=== PATIENT | male | born 1940 | race Caucasian/White ===

== ENCOUNTER 2023-08-31 21:56 | Emergency (ER) | payer MEDICARE, OTHER, SELFPAY ==
--- NOTE | ~2023-08-31 | XR_ITS ---
Portable chest x-ray Comparison: None Clinical History: Sepsis Findings: There is mild patchy bibasilar haziness and probable mild peripheral and basilar interstit ial prominence. Cardiomediastinal silhouette is enlarged. Bones and soft tissues are unremarkable. Impression: Mild bibasilar haziness could reflect pulmonary edema, atelectasis, pneumonia, or chronic interstitia l change. Correlate clinically. Suspected underlying peripheral and basilar predominant chronic interstitial disease. Cardiomegaly. Reviewed, dictated and finalized at location M. Impression: Mild bibasilar haziness could reflect pulmonary edema, atelectasis, pneumonia, or chronic interstitial change. Correlate clinically. Suspected underlying peripheral and basilar predominant chronic interstitial di sease. Cardiomegaly.
--- NOTE | ~2023-08-31 | XR_ITS ---
Left Knee Technique: AP and lateral views were obtained. Clinical History: Septic knee, knee surgery 3 months ago Findings: There is a transverse fracture of the mid patellar body, with distraction of the fracture f ragments by approximately 2.8 cm. There is extensive orthopedic fixation hardware involving the super ior patellar fragment, however the inferior patellar fragment is not transfixed by hardware, which co uld reflect failure of the fixation. Underlying neoplastic hardware is in satisfactory position other sharpe. There is mild soft tissue edema at the anterior knee. No joint effusion is seen. Impression: Transverse fracture the mid patellar body with 2.8 cm of distraction. Probable failure of prior mcnair lar ORIF, with orthopedic fixation hardware involving the superior patellar fragment, but not the inf erior. Osteomyelitis of the patella cannot be completely excluded, though changes could also be related to p osttraumatic change and underlying fracture. Reviewed, dictated and finalized at location . Impression: Transverse fracture the mid patellar body with 2.8 cm of distraction. Probable failure of prior patellar ORIF, with orthopedic fixation hardware involving the superior patellar fragment, but not the inferior. Osteomyelitis of the patella cannot be completely excluded, though changes coul d also be related to posttraumatic change and underlying fracture.
[2023-08-31 21:52] VITALS: BP 171/90; PULSE 78; RESP 18; TEMP 37.8; O2SAT 95
--- NOTE | 2023-08-31 22:04 | ED.EXTPRO ---
HPI - Extremity Problem General Chief complaint: Extremity Problem,Nontraumatic <Bernardino Gaines PA-C - Last Filed: 09/01/23 02:00> Stated complaint: knee pian <Bernardino Gaines PA-C - Last Filed: 09/01/23 02:00> Time Seen by Provider: 08/31/23 21:56 <Bernardino Gaines PA-C - Last Filed: 09/01/23 02:00> Source: patient <ARBEN Coffey Last Filed: 09/01/23 02:00> Mode of arrival: EMS <ARBEN Coffey Last Filed: 09/01/23 02:00> Limitations: no limitations <ARBEN Coffey Last Filed: 09/01/23 02:00> History of Present Illness HPI Narrative: This is an 81-year-old male who presents to the ED with chief complaint of left knee pain and swelling for the past 24 hours. He is currently residing in a nursing/ rehab facility after having left knee surgery 3 months ago. Reports that he broke his patella. He has history of bilateral knee replacements over a decade ago. These procedures were done at [facility] with most recent June 19, 2023, after having a fractured patella. he states that the knee pain and swelling has been rapidly worsening over the past 24 hours. Before yesterday states he was feeling fine. States it is very difficult to move the knee at all and certainly cannot bear weight. Unsure fevers. Denies nausea, vomiting, urinary symptoms, chest pain, cough, shortness of breath, no pain. <Bernardino Gaines PA-C - Last Filed: 09/01/23 02:00> Related Data Allergies/Adverse reactions: Allergies Allergy/AdvReac Type Severity Reaction Status Date / Time No Known Allergies Allergy Mild Verified 11/18/09 18:01 <ARBEN Coffey Last Filed: 09/01/23 02:00> Review of Systems Review of Systems: All systems as dictated in HPI <ARBEN Coffey Last Filed: 09/01/23 02:00> Exam Narrative: GENERAL: Well-appearing, well-nourished, and in no acute distress. HEAD: Normocephalic, atraumatic. EYES: PERRLA and EOMI. ENT: Nares clear, no rhinorrhea or epistaxis. Mucous membranes moist. Oropharynx without tonsillar hypertrophy exudate or other lesions. NECK: Supple. No adenopathy or masses. CHEST: No respiratory distress. Clear to auscultation. No wheezes rales or rhonchi HEART: Regular rate and rhythm. No murmur heard. Normal peripheral pulses. ABDOMEN: Soft, nontender, nondistended, normal active bowel sounds. MSK: Left knee: erythematous and quite warm to palpation. Significant pain with micro movements of the knee. tender throughout. No drainage. Healed midline vertical incision. Right knee: Benign SKIN: Warm, dry, no rash. NEURO: Alert and oriented x4. No focal deficits. PSYCH: Normal mood and affect. <Bernardino Gaines PA-C - Last Filed: 09/01/23 02:00> Course FLEXO OPERATOR/PA Physician Supervision This visit was performed by both a physician and an APC. I performed all aspects of the MDM as documented. <Vivian Dennis MD - Last Filed: 09/01/23 07:39> Vital Signs Vital signs: Vital Signs Temperature 100.0 F H 08/31/23 21:52 Pulse Rate 78 08/31/23 21:52 Respiratory Rate 18 08/31/23 21:52 Blood Pressure 171/90 H 08/31/23 21:52 Pulse Oximetry 95 08/31/23 21:52 Oxygen Delivery Room Air 08/31/23 21:52 Temperature 100.0 F H 08/31/23 21:52 Pulse Rate 76 09/01/23 01:37 Respiratory Rate 16 09/01/23 01:37 Blood Pressure 160/86 H 09/01/23 01:37 Pulse Oximetry 96 09/01/23 01:39 Oxygen Delivery Nasal Cannula 09/01/23 01:39 Oxygen Flow Rate 2 09/01/23 01:39 <Bernardino Gaines PA-C - Last Filed: 09/01/23 02:00> Vital Signs Temperature 100.0 F H 08/31/23 21:52 Pulse Rate 78 08/31/23 21:52 Respiratory Rate 18 08/31/23 21:52 Blood Pressure 171/90 H 08/31/23 21:52 Pulse Oximetry 95 08/31/23 21:52 Oxygen Delivery Room Air 08/31/23 21:52 Temperature 100.0 F H 08/31/23 21:52 Pulse Rate 76 09/01/23 01:37 Respiratory Rate 16 09/01/23 01:37 Blood Pressure 160/86 H 07
[2023-08-31] MEDS: SODIUM CHLORIDE 0.9% IV 1,000 ML 999 ML IV CONT (22:13)
[2023-08-31] MEDS: ONDANSETRON INJ 4 MG/2 ML VIAL IV PUSH (22:13)
[2023-08-31] MEDS: HYDROmorphone HCL INJ (*CRX) 1 MG/ML SYR 0.5 MG IV PUSH (22:13)
[2023-08-31 22:33] LABS: Basophils Percent Auto 0.4 % (0.2-1.2); Eosinophils Absolute Auto 0.1 K/mm3 (0-0.3); Eosinophils Percent Auto 0.8 % (0-4.4); Hemoglobin 13.2 g/dL (14.0-18.0); Immature Granulocyte Absolute 0.03 K/mm3 (0.00-0.031); Immature Granulocyte Percent A 0.3 % (0-0.5); Lymphocytes Absolute Auto 2.41 K/mm3 (0.9-3.2); Lymphocytes Percent Auto 26.7 % (18.3-44.2); Mean Corpuscular Hemoglobin 29.6 pg (26-34); Mean Corpuscular Volume 89.7 fl (80-100); Mean Platelet Volume 9.8 fl (7.4-10.4); Monocytes Absolute Auto 1.2 K/mm3 (0.1-0.6); Monocytes Percent Auto 12.8 % (2.6-8.5); Neutrophils Absolute Auto 5.3 K/mm3 (1.3-6.7); Platelet Count Result 176 k/mm3 (150-375); Red Blood Count 4.46 M/mm3 (4.6-6.20); Red Cell Distribution Width 14.1 % (11.5-14.5)
[2023-08-31 22:34] VITALS: PULSE 79
[2023-08-31 22:43] LABS: INR 1.2; Lactic Acid Reflex 1.2 mmol/L (0.7-2.0); Prothrombin Time 16.2 Seconds (11.1-14.7)
[2023-08-31 22:56] LABS: Alanine Aminotransferase 20 U/L (6-50); Albumin Level 3.9 g/dL (3.5-5.1); Alkaline Phosphatase 88 U/L (38-126); Anion Gap 8 mmol/L (4-12); Aspartate Amino Transferase 33 U/L (17-59); Bilirubin,Total 0.7 mg/dL (0.2-1.3); Blood Urea Nitrogen 14 mg/dL (9-20); Calcium 8.9 mg/dL (8.4-10.2); Carbon Dioxide 25 mmol/L (22-30); Chloride 105 mmol/L (98-107); Estimated CRCL calculation 71 ml/min; Estimated Glomerular Filt Rate > 60; Glucose 129 mg/dL (65-110); Sodium 138 mmol/L (137-145)
--- NOTE | 2023-09-01 00:31 | PC.NURSE ---
Patient adamant about not straight catheterization. Continues to attempt to urinate in urinal.
[2023-09-01 00:32] VITALS: BP 156/80; PULSE 70; RESP 15; O2SAT 95
[2023-09-01 01:37] VITALS: BP 160/86; PULSE 76; RESP 16; O2SAT 95
[2023-09-01 01:39] VITALS: O2SAT 96
--- NOTE | 2023-09-01 01:39 | PC.NURSE ---
Patient desaturating when sleeping to mid 80's; once awake oxygen saturation increases promptly. EDP made aware. Placed on 2 LPM of supplemental oxygen.
[2023-09-01 01:57] LABS: Erythrocyte Sedimentation Rate 18 mm/hr (0-20)
[2023-09-01] MEDS: HYDROmorphone HCL INJ (*CRX) 1 MG/ML SYR 0.5 MG IV PUSH (03:41)
== END 2023-09-01 03:50 | disposition short-term general hospital (02) ==
PROVIDERS: Emergency Provider Physician Assistant; PCP Family Medicine
DX: M25.462 Effusion, left knee (principal); S82.032A Displaced transverse fracture of left patella, initial encounter for closed fracture; R91.8 Other nonspecific abnormal finding of lung field; I51.7 Cardiomegaly; Z96.653 Presence of artificial knee joint, bilateral; R93.6 Abnormal findings on diagnostic imaging of limbs; X58.XXXA Exposure to other specified factors, initial encounter
CPT/HCPCS: 36415; 71045; 73560; 80053; 83605; 85025; 85610; 85652; 85730; 86140; 87040; 96361; 96374; 96375; 96376; 99285; J1170; J2405; J7030

== ENCOUNTER 2024-04-23 16:02 | Inpatient (IN) | payer MEDICARE, OTHER, SELFPAY ==
[2024-04-23] VITALS (14 sets, daily range): BP systolic 96–137; BP diastolic 61–94; PULSE 55–67; RESP 14–21; TEMP 36.8; O2SAT 96–100
[2024-04-23 17:43] LABS: Eosinophils Absolute Auto 0.1 K/mm3 (0-0.3); Eosinophils Percent Auto 2.3 % (0-4.4); Hematocrit 23.8 % (42.0-52.0); Hemoglobin 7.1 g/dL (14.0-18.0); Immature Granulocyte Absolute 0.01 K/mm3 (0.00-0.031); Immature Granulocyte Percent A 0.3 % (0-0.5); Lymphocytes Absolute Auto 1.67 K/mm3 (0.9-3.2); Lymphocytes Percent Auto 42.6 % (18.3-44.2); Mean Corpuscular HGB Conc 29.8 g/dl (32-36); Mean Corpuscular Hemoglobin 26.8 pg (26-34); Mean Corpuscular Volume 89.8 fl (80-100); Mean Platelet Volume 9.6 fl (7.4-10.4); Monocytes Absolute Auto 0.5 K/mm3 (0.1-0.6); Neutrophils Absolute Auto 1.6 K/mm3 (1.3-6.7); Neutrophils Percent Auto 41.8 % (45.5-73.1); Platelet Count Result 286 k/mm3 (150-375); Red Blood Count 2.65 M/mm3 (4.6-6.20); Red Cell Distribution Width 16.3 % (11.5-14.5); White Blood Count 3.9 K/mm3 (4.5-10.0)
[2024-04-23 18:01] LABS: Alanine Aminotransferase 14 U/L (6-50); Albumin Level 3.6 g/dL (3.5-5.1); Alkaline Phosphatase 67 U/L (38-126); Anion Gap 9 mmol/L (4-12); Aspartate Amino Transferase 18 U/L (17-59); Bilirubin,Total 0.3 mg/dL (0.2-1.3); Blood Urea Nitrogen 14 mg/dL (9-20); Calcium 8.7 mg/dL (8.4-10.2); Carbon Dioxide 25 mmol/L (22-30); Chloride 106 mmol/L (98-107); Estimated CRCL calculation 51 ml/min; Estimated Glomerular Filt Rate > 60; Glucose 79 mg/dL (65-110); Potassium 4.1 mmol/L (3.4-5.0); Sodium 140 mmol/L (137-145)
[2024-04-23 18:08] LABS: INR 1.4; Prothrombin Time 17.8 Seconds (11.1-14.7)
[2024-04-23 18:11] LABS: Troponin I < 0.012 ng/mL (0.000-0.034)
[2024-04-23 18:17] LABS: Platelet Estimate Adequate (Adequate)
[2024-04-23 18:18] LABS: Hypochromasia 1+; Ovalocytes 1+; Schistocytes None Seen
[2024-04-23 18:46] LABS: Strep Group A RT-PCR NOT DETECTED (Negative)
--- NOTE | 2024-04-23 19:09 | ED.GENADULT ---
HPI - General Adult General Chief complaint: Recheck/Abnormal Lab/Rx Stated complaint: low H&H Time Seen by Provider: 04/23/24 16:55 History of Present Illness HPI narrative: This is an 83-year-old male sent in for abnormal labs. Patient's hemoglobin was 6.7 at his rehab center. Patient is on Eliquis for AFib. Patient denies any melena or hematochezia. Patient has no complaints at this time. Patient does not know why he is in the hospital. Patient is in rehab for a patella fracture that has had a complicated course. Review of his [facility] paperwork showed hemoglobin of 12.5 on 03/22/24. Related Data Allergies Allergy/AdvReac Type Severity Reaction Status Date / Time No Known Allergies Allergy Mild Verified 04/23/24 16:14 [facility] Social History Social History Smoking status: Smoker, status unknown Exam Narrative: APPEARANCE: No apparent distress. Head: atraumatic. EYES: EOMI, NOSE: Atraumatic NECK: Trachea midline RESPIRATORY: No increased rate of breathing CARDIOVASCULAR: RRR, ABDOMINAL: Non-distended soft nontender no guarding rebound Digital rectal exam revealed no esha blood in the rectal vault. Hemoccult positive. MUSCULOSKELETAl: Left knee has surgical scars/deformities without warmth erythema or signs infection NEURO: Alert. Moving 4/4 extremities SKIN:: Warm, dry. Normal color PSYCHIATRIC: Normal affect Course Vital Signs Vital signs: Vital Signs Temperature 98.3 F 04/23/24 16:05 Pulse Rate 67 04/23/24 16:05 Respiratory Rate 20 04/23/24 16:05 Blood Pressure 127/67 04/23/24 16:05 Pulse Oximetry 97 04/23/24 16:05 Oxygen Delivery Room Air 04/23/24 16:05 Temperature 98.3 F 04/23/24 16:12 Pulse Rate 60 04/23/24 21:41 Respiratory Rate 14 04/23/24 21:41 Blood Pressure 117/81 04/23/24 21:41 Pulse Oximetry 96 04/23/24 21:41 Oxygen Delivery Room Air 04/23/24 16:05 Medical Decision Making MDM Narrative Medical decision making narrative: -Course: 83-year-old male presenting from a [facility] for abnormal labs. Today was 7.1. Reviewed his [facility] paperwork and 1 month ago his hemoglobin was 12.5 which is a significant drop. Patient was Hemoccult positive but no esha blood in the rectal vault. Patient is on eliquis for a-fib. Anemia labs have been ordered which will be followed with primary team. Bailey screen was ordered incorrectly on this patient. It came back positive. He does not have any symptoms of mono. Case discussed with Dr. Brown. He requested viral swabs which been ordered. GI consulted. Admitted. -DDX includes but is not limited to: Rectal bleeding, hemolysis, anemia chronic disease, neoplasm Independent EKG interpretation: Rhythm atrial fibrillation], Rate [58], [place] -[normal], [place] -[normal], QRS [narrow], QTC [normal], T waves -[negative for concerning inversions], ST Segments - [Negative for concerning elevations] Final interpretations: AFib with slow ventricular response Vital Signs Vital Signs: Vital Signs Temperature 98.3 F 04/23/24 16:05 Pulse Rate 67 04/23/24 16:05 Respiratory Rate 20 04/23/24 16:05 Blood Pressure 127/67 04/23/24 16:05 Pulse Oximetry 97 04/23/24 16:05 Oxygen Delivery Room Air 04/23/24 16:05 Temperature 98.3 F 04/23/24 16:12 Pulse Rate 60 04/23/24 21:41 Respiratory Rate 14 04/23/24 21:41 Blood Pressure 117/81 04/23/24 21:41 Pulse Oximetry 96 04/23/24 21:41 Oxygen Delivery Room Air 04/23/24 16:05 Lab Data 04/23/24 17:35 04/23/24 17:35 Labs: Lab Results 04/23/24 04/23/24 04/23/24 Range/Units 17:35 17:35 17:53 WBC 3.9 L (4.5-10.0) K/mm3 RBC 2.65 L (4.6-6.20) M/mm3 Hgb 7.1 L (14.0-18.0) g/dL Hct 23.8 L (42.0-52.0) % MCV 89.8 (80-100) fl MCH 26.8 (26-34) pg MCHC 29.8 L (32-36) g/dl RDW 16.3 H (11.5-14.5) % Plt Count 286 D (150-375) k/mm3 MPV 9.6 (7.4-10.4) fl Immature Gran % (Auto) 0.3 (0-0.5) % Neut % (Auto) 41.8 L (45.5-73.1) % Lymph % (Auto) 42.6 (18.3-44.2) % Bailey % (Auto) 12.0 H (2.6-8.5) % Eos % (Auto) 2.3 (0-4.4) % Baso % (Auto) 1.0 (0.2-1.2) % Lymph # (Auto) 1.67 (0.9-3.2) K/mm3 Bailey # (Auto) 0.5 (0.1-0.6) K/mm3 Eos # (Auto) 0.1 (0-0.3) K/mm3 Baso # (Auto) 0.0 (0.0-0.1) K/mm3 Abs Immat Gran (auto) 0.01 (0.00-0.031) K/mm3 Absolute Neuts (auto) 1.6 (1.3-6.7) K/mm3 Absolute Nucleated RBC 0.000 (0.0-0.012) K/mm3 Band Neutrophils % Not Reportable Nucleated RBC % 0.0 (0.0-0.2) % Platelet Estimate Adequate (Adequate) Hypochromasia 1+ Ovalocytes 1+ Schistocytes None seen Absolute Retic 0.11 H (0.02-0.10) 10^6/uL Percent Retic 4.58 H (0.7-4.3) % Immature Retic Fraction 18.5 H (3.0-15.9) % Retic Hgb Content 19.7 L (28.2-36.6) pg PT 17.8 H (11.1-14.7) Seconds INR 1.4 APTT 36.0 (22.3-36.8) Seconds Sodium 140 (137-145) mmol/L Potassium 4.1 (3.4-5.0) mmol/L Chloride 106 (98-107) mmol/L Carbon Dioxide 25 (22-30) mmol/L Anion Gap 9 (4-12) mmol/L BUN 14 (9-20) mg/dL Creatinine 1.01 (0.7-1.3) mg/dL Estim Creat Clear Calc 51 ml/min Estimated GFR > 60 (59 - ) Glucose 79 (65-110) mg/dL Calcium 8.7 (8.4-10.2) mg/dL Iron (49-181) ug/dL TIBC (265-497) ug/dL % Saturation (20-50) % Transferrin (206-381) mg/dL Ferritin (11.1-264) ng/mL Total Bilirubin 0.3 (0.2-1.3) mg/dL Direct Bilirubin (0-0.3) mg/dL AST 18 (17-59) U/L ALT 14 (6-50) U/L Alkaline Phosphatase 67 (38-126) U/L Lactate Dehydrogenase (120-246) U/L Troponin I < 0.012 Cancelled (0.000-0.034) ng/mL Total Protein 6.0 L (6.3-8.2) g/dL Albumin 3.6 (3.5-5.1) g/dL Vitamin B12 Folate TSH (Reflex) (0.465-4.68) uIU/mL Free T4 Monoscreen (Negative) Group A Strep (PCR) Not detected (Negative) Blood Type O Positive Antibody Screen Negative MICHAEL, IgG Interpret Neg MICHAEL, Complement Interp Not Performed Indirect Antiglob Test Negative 04/23/24 Range/Units 20:49 WBC (4.5-10.0) K/mm3 RBC (4.6-6.20) M/mm3 Hgb (14.0-18.0) g/dL Hct (42.0-52.0) % MCV (80-100) fl MCH (26-34) pg MCHC (32-36) g/dl RDW (11.5-14.5) % Plt Count (150-375) k/mm3 MPV (7.4-10.4) fl Immature Gran % (Auto) (0-0.5) % Neut % (Auto) (45.5-73.1) % Lymph % (Auto) (18.3-44.2) % Bailey % (Auto) (2.6-8.5) % Eos % (Auto) (0-4.4) % Baso % (Auto) (0.2-1.2) % Lymph # (Auto) (0.9-3.2) K/mm3 Bailey # (Auto) (0.1-0.6) K/mm3 Eos # (Auto) (0-0.3) K/mm3 Baso # (Auto) (0.0-0.1) K/mm3 Abs Immat Gran (auto) (0.00-0.031) K/mm3 Absolute Neuts (auto) (1.3-6.7) K/mm3 Absolute Nucleated RBC (0.0-0.012) K/mm3 Band Neutrophils % Nucleated RBC % (0.0-0.2) % Platelet Estimate (Adequate) Hypochromasia Ovalocytes Schistocytes Absolute Retic (0.02-0.10) 10^6/uL Percent Retic (0.7-4.3) % Immature Retic Fraction (3.0-15.9) % Retic Hgb Content (28.2-36.6) pg PT (11.1-14.7) Seconds INR APTT (22.3-36.8) Seconds Sodium (137-145) mmol/L Potassium (3.4-5.0) mmol/L Chloride (98-107) mmol/L Carbon Dioxide (22-30) mmol/L Anion Gap (4-12) mmol/L BUN (9-20) mg/dL Creatinine (0.7-1.3) mg/dL Estim Creat Clear Calc ml/min Estimated GFR (59 - ) Glucose (65-110) mg/dL Calcium (8.4-10.2) mg/dL Iron 22 L (49-181) ug/dL TIBC 336 (265-497) ug/dL % Saturation 7 L (20-50) % Transferrin 253 (206-381) mg/dL Ferritin 13.80 (11.1-264) ng/mL Total Bilirubin 0.3 (0.2-1.3) mg/dL Direct Bilirubin 0.0 (0-0.3) mg/dL AST (17-59) U/L ALT (6-50) U/L Alkaline Phosphatase (38-126) U/L Lactate Dehydrogenase 131 (120-246) U/L Troponin I < 0.012 (0.000-0.034) ng/mL Total Protein (6.3-8.2) g/dL Albumin (3.5-5.1) g/dL Vitamin B12 Pending Folate Pending TSH (Reflex) 4.550 (0.465-4.68) uIU/mL Free T4 Pending Monoscreen Positive A (Negative) Group A Strep (PCR) (Negative) Blood Type Antibody Screen MICHAEL, IgG Interpret MICHAEL, Complement Interp Indirect Antiglob Test Discharge Plan Discharge Clinical Impression: Anemia Patient Disposition: Home, Self-Care Condition: Stable Instructions: Antibiotic Form Patient Language: Citizen Of [place] Prescriptions: No Action oxycodone 5 mg tablet 5 mg PO Q8H PRN (Reason: pain) Qty: 30 0RF Follow-up/Referrals: Helen,Will Rossi MD [Primary Care Provider] -
[2024-04-23 19:31] LABS: Immature Reticulocyte Fraction 18.5 % (3.0-15.9); Reticulocyte Hemoglobin Conten 19.7 pg (28.2-36.6); Reticulocyte Percent 4.58 % (0.7-4.3)
[2024-04-23 19:34] LABS: Reticulocytes Absolute 0.11 10^6/uL (0.02-0.10)
[2024-04-23 21:08] LABS: Bilirubin,Total 0.3 mg/dL (0.2-1.3); Iron 22 ug/dL (49-181); Lactate Dehydrogenase 131 U/L (120-246)
[2024-04-23 21:09] LABS: Monoscreen Positive (Negative); Negative Monotest Control Negative (Negative); Positive Monotest Control Positive (Positive)
[2024-04-23 21:16] LABS: Transferrin 253 mg/dL (206-381)
[2024-04-23 21:19] LABS: Percent Iron Saturation 7 % (20-50)
[2024-04-23 21:21] LABS: Troponin I < 0.012 ng/mL (0.000-0.034)
--- NOTE | 2024-04-23 21:48 | PC.NURSE ---
This RN spoke with staff at [facility] and provided an update on pt.
[2024-04-23 22:19] LABS: Folic Acid > 20.0 ng/mL (2.76->20)
[2024-04-23 22:22] LABS: Free T4 Free Thyroxine Reflex 0.95 ng/dL (0.78-2.19)
--- NOTE | 2024-04-23 22:30 | PM.IMHP ---
H&P: HPI History of Present Illness Date/Time: 04/24/24 00:51 Chief Complaint: 1. Fatigue Narrative: Will Chung is an 83 yo M with a mhx significant for a sedentary status due to Li surgical complications, Hypertension, BPH, depression, RLS, He was sent to the ED for expert evaluation after a routine Hb check pegged his Hb at 7 compared to a baseline of 12 in recent weeks; he is on a regimen of Apixaban for A-fib; with no known modifying factors, he attests to increased somnolence and undue fatigue. He however denies melenic stools, esha hematochezia, hematemesis or other bleeding diathesis. He is currently residing in a nursing/ rehab facility after having left knee surgery 3 months ago. Reports that he broke his patella. He has history of bilateral knee replacements over a decade ago. These procedures were done at [facility] with most recent June 19, 2023, after having a fractured patella. 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 Work-up findings: +FOBT Hb 7.1 >> 6.9 WBC 3.9 Iron 22; TIBC 336; Ferritin 13 Retic count 0.11; INR 1.4 Influenza A/B, RSV, COVID: Negative UA: Unremarkable CXR: Cardiomegaly with cardiac decompensation and pulmonary edema. Superimposed pneumonitis is not excluded. Will Chung will be admitted, evaluated and managed for anemia with GIB Review of Systems Review of Systems: All systems reviewed & are unremarkable except as noted in HPI and below PMFSH Social History Social History Smoking packs per day: 3 Smoking cigarettes per day: 60.0 Smoking status: Former smoker Tobacco type: cigarettes Smoking end date: 05/08/1958 Alcohol intake: never Substance use: never Do You Feel Safe in your Home?: Yes Lack of Transportation: No Lack of Food: Never True Current Housing: I Have Housing Concerned About Future Housing: No Difficulty Paying Gas/Electric Bills: No Difficulty Paying for Meds: No Currently Unemployed: No Education: Master's Degree or Higher Difficulty w/ Childcare or Family Care: No Spiritual care concerns: No Meds Home Medications and Allergies Home Medications ?Medication ?Instructions ?Recorded ?Confirmed ?Type Saccharomyces boulardii 250 mg 250 mg PO DAILY 04/24/24 04/24/24 History capsule (Daily Probiotic (S. boulardii)) acetaminophen 500 mg capsule 500 mg PO Q6H PRN pain 04/24/24 04/24/24 History amlodipine 5 mg tablet 5 mg PO DAILY 04/24/24 04/24/24 History apixaban 5 mg tablet (Eliquis) 5 mg PO BID 04/24/24 04/24/24 History aspirin 81 mg tablet,delayed 81 mg PO DAILY 04/24/24 04/24/24 History release (Adult Aspirin Regimen) bupropion HCl 150 mg tablet,12 hr 150 mg PO Q12H 04/24/24 04/24/24 History sustained-release finasteride 5 mg tablet 5 mg PO DAILY 04/24/24 04/24/24 History fluoxetine 20 mg capsule 20 mg PO DAILY 04/24/24 04/24/24 History meloxicam 7.5 mg tablet 7.5 mg PO DAILY 04/24/24 04/24/24 History metoprolol succinate 50 mg 50 mg PO DAILY 04/24/24 04/24/24 History tablet,extended release 24 hr miconazole nitrate 2 % topical 1 applic topical BID 04/24/24 04/24/24 History powder (Antifungal (miconazole)) smalztgy-xark-jwgyziw gluconate 9 15 ml PO DAILY 04/24/24 04/24/24 History mg iron/15 mL (15 mL) oral liquid (Centrum) ondansetron 4 mg disintegrating 4 mg PO Q8H PRN nausea and vomiting 04/24/24 04/24/24 History tablet polyethylene glycol 3350 17 8.5 g PO DAILY 04/24/24 04/24/24 History gram/dose oral powder (ClearLax) ropinirole 0.5 mg tablet 0.5 mg PO HS 04/24/24 04/24/24 History sulfamethoxazole 800 1 tablet PO Q12H 04/24/24 04/24/24 History mg-trimethoprim 160 mg tablet (Bactrim DS) tizanidine 4 mg tablet 4 mg PO Q8H 04/24/24 04/24/24 History vibegron 75 mg tablet (Gemtesa) 75 mg PO DAILY 04/24/24 04/24/24 History Allergies Allergy/AdvReac Type Severity Reaction Status Date / Time No Known Allergies Allergy Mild Verified 04/23/24 16:14 Vital Signs Vital Signs - 24 hr 04/23/24 16:05 04/23/24 16:12 04/23/24 16:35 Temperature 98.3 F 98.3 F Pulse Rate 67 67 Respiratory Rate 20 20 20 Blood Pressure 127/67 127/67 Pulse Oximetry 97 98 97 Oxygen Delivery Room Air 04/23/24 17:30 04/23/24 18:01 04/23/24 18:21 Temperature Pulse Rate 59 L 66 65 Respiratory Rate 19 21 H 18 Blood Pressure 105/61 96/85 L 107/94 H Pulse Oximetry 98 100 97 Oxygen Delivery 04/23/24 18:21 04/23/24 18:42 04/23/24 19:22 Temperature Pulse Rate 60 59 L 59 L Respiratory Rate 17 20 14 Blood Pressure 107/94 H 125/73 127/62 Pulse Oximetry 96 96 97 Oxygen Delivery 04/23/24 20:22 04/23/24 20:41 04/23/24 21:01 Temperature Pulse Rate 55 L 56 L 62 Respiratory Rate 18 16 19 Blood Pressure 121/70 136/79 Pulse Oximetry 97 97 Oxygen Delivery 04/23/24 21:21 04/23/24 21:41 04/23/24 22:01 Temperature Pulse Rate 60 60 64 Respiratory Rate 20 14 16 Blood Pressure 137/80 117/81 104/68 Pulse Oximetry 97 96 Oxygen Delivery Exam Const: General: comfortable HENMT: Ears: TM's normal bilaterally Mouth: Yes moist mucous membranes Eyes: General: appearance normal, both eyes and all related structures Sclera: sclerae normal Pupils: Equal, round and reactive pupils present Other: conjuctival pallor Neck: Neck: supple Thyroid: thyroid normal Resp: Effort & Inspection: normal respiratory effort Cardio: Rate: bradycardic Rhythm: abnormal rhythm GI: Auscultation: normal bowel sounds Skin: General skin exam: normal color Lesions: lesion noted Rashes: rashes noted Neuro: General: No gait normal Motor exam (neuro): tone not normal throughout and Abnormal motor strength present Extrem: General: normal to inspection Psych: Mental Status: mental status grossly normal H&P: Results Labs Labs: Short CBC 04/23/24 04/24/24 Range/Units 17:35 00:37 WBC 3.9 L (4.5-10.0) K/mm3 Hgb 7.1 L 6.9 L* (14.0-18.0) g/dL Hct 23.8 L 23.0 L (42.0-52.0) % Plt Count 286 D (150-375) k/mm3 BMP 04/23/24 17:35 Sodium 140 Potassium 4.1 Chloride 106 Carbon Dioxide 25 BUN 14 Creatinine 1.01 AGlucose 79 Calcium 8.7 Cardiac Enzymes 04/23/24 04/23/24 04/23/24 Range/Units 17:35 17:35 20:49 Troponin I < 0.012 Cancelled < 0.012 (0.000-0.034) ng/mL Liver Function 04/23/24 04/23/24 Range/Units 17:35 20:49 Total Bilirubin 0.3 0.3 (0.2-1.3) mg/dL Direct Bilirubin 0.0 (0-0.3) mg/dL AST 18 (17-59) U/L ALT 14 (6-50) U/L Alkaline Phosphatase 67 (38-126) U/L Albumin 3.6 (3.5-5.1) g/dL Assessment and Plan Assessment and plan (1) GIB (gastrointestinal bleeding): Code(s): K92.2 - Gastrointestinal hemorrhage, unspecified Status: Acute (2) Anemia: Code(s): D64.9 - Anemia, unspecified Status: Acute Plan Acute and principal conditions 1. Anemia; GIB Rx: A. PPI; B. Goal Hb >7 c. Chronic and stable conditions 1. RLS. 2. BPH. 3. Recurrent depression 4. Hypertension. 5. RLS. Miscellaneous care 1. Code status. Full 2. Nutrition. CLD 3. VTE prophylaxis. SCDs; holding pharmacologic VTE Hospitalist MIPS Advance Care Plan I have confirmed that the patient's Advanced Care Plan is present, code status is documented, or surrogate decision maker is listed in patient medical record.: Yes Medication Reconciliation I have utilized all available resources to obtain, update and review the patients current medications (includes all prescriptions, OTC, herbals, cannabis, and nutritional supplements).: Yes The patient is not eligible for med reconciliation; the patient is in a emergent medical situation where delaying treatment would jeopardize the patients health.: Yes
[2024-04-23 22:45] LABS: Influenza A QL RT-PCR Negative (Negative); Influenza B QL RT-PCR Negative (Negative); RSV RNA, RT-PCR Negative (Negative); SARS-CoV-2 RNA PCR Negative (Negative)
[2024-04-24] VITALS (12 sets, daily range): BP systolic 102–138; BP diastolic 60–71; PULSE 49–67; RESP 16–20; TEMP 35.9–37; O2SAT 95–100
[2024-04-24 00:44] LABS: Hemoglobin 6.9 g/dL (14.0-18.0)
[2024-04-24] MEDS: PANTOPRAZOLE SODIUM IV 40 MG VIAL IV PUSH ×3 (02:52→20:59)
[2024-04-24 03:16] LABS: Total Triiodothyronine (T3) 0.97 NG/ML (0.97-1.69)
[2024-04-24] MEDS: SODIUM CHLORIDE 0.9% IV 250 ML 30 ML IV CONT (07:42)
[2024-04-24 09:22] LABS: Eosinophils Absolute Auto 0.1 K/mm3 (0-0.3); Eosinophils Percent Auto 2.6 % (0-4.4); Hematocrit 26.3 % (42.0-52.0); Immature Granulocyte Absolute 0.01 K/mm3 (0.00-0.031); Immature Granulocyte Percent A 0.3 % (0-0.5); Lymphocytes Absolute Auto 1.63 K/mm3 (0.9-3.2); Lymphocytes Percent Auto 42.3 % (18.3-44.2); Mean Corpuscular HGB Conc 30.4 g/dl (32-36); Mean Corpuscular Hemoglobin 27.9 pg (26-34); Mean Corpuscular Volume 91.6 fl (80-100); Mean Platelet Volume 9.3 fl (7.4-10.4); Monocytes Absolute Auto 0.5 K/mm3 (0.1-0.6); Monocytes Percent Auto 13.5 % (2.6-8.5); Neutrophils Absolute Auto 1.6 K/mm3 (1.3-6.7); Neutrophils Percent Auto 40.3 % (45.5-73.1); Platelet Count Result 251 k/mm3 (150-375); Red Blood Count 2.87 M/mm3 (4.6-6.20); Red Cell Distribution Width 15.9 % (11.5-14.5); White Blood Count 3.9 K/mm3 (4.5-10.0)
[2024-04-24 09:23] LABS: Alanine Aminotransferase 14 U/L (6-50); Albumin Level 3.4 g/dL (3.5-5.1); Alkaline Phosphatase 62 U/L (38-126); Anion Gap 8 mmol/L (4-12); Aspartate Amino Transferase 16 U/L (17-59); Bilirubin,Total 0.7 mg/dL (0.2-1.3); Blood Urea Nitrogen 13 mg/dL (9-20); Calcium 8.5 mg/dL (8.4-10.2); Carbon Dioxide 23 mmol/L (22-30); Chloride 108 mmol/L (98-107); Estimated CRCL calculation 60 ml/min; Estimated Glomerular Filt Rate > 60; Glucose 77 mg/dL (65-110); Potassium 4.2 mmol/L (3.4-5.0); Sodium 139 mmol/L (137-145)
--- NOTE | 2024-04-24 09:26 | PM.IMPN ---
Progress Note: A&P Assessment and Plan (1) Anemia: Code(s): D64.9 - Anemia, unspecified Status: Acute Assessment and Plan: patient was sent in from his rehab center after follow-up labs indicated his hemoglobin had dropped to 7.1 last year 2023 his hemoglobin was 13.2 patient is on chronic anticoagulation aspirin apixaban hemodynamically stable HGb 7.1>6.9 Transfused 1 unit PRBC H&H q6HR GI consulted occult stool ordered TIBC 22/Sat 7 PPI BID Transfuse PRBC if Hgb <7.0 Holding ASA/eliquis Iron supplement added BID (2) Hypertension: Code(s): I10 - Essential (primary) hypertension Status: Acute Assessment and Plan: will resume amlodipine and metoprolol as BP tolerates reviewed BP this a.m. when 108/67 re-evaluate after unit of blood (3) BPH (benign prostatic hyperplasia): Code(s): N40.0 - Benign prostatic hyperplasia without lower urinary tract symptoms Status: Acute Assessment and Plan: resume Proscar monitor for urinary retention (4) Chronic anticoagulation: Code(s): Z79.01 - senior care (current) use of anticoagulants Status: Acute Assessment and Plan: patient on ASA, apixaban at home currently holding medications to possible GI bleed Plan Code status: Full code per patient DVT prophylaxis: SCD's (Eliquis and ASA on hold) Stress ulcer prophylaxis: Protonix 40 BID PT/OT notes: NA Currently at a rehab (SNF ) Disposition: patient continues admission for possible GI bleed with anemia received 1 unit of blood will continue to monitor and transfuse as needed GI has been consulted for further evaluation and will continue to hold his anticoagulation therapy. Patient is from a snf facility where he is receiving rehab will likely return when medically stable. Time Spent With Patient Time with patient: 15 - 25 minutes Subjective Date/time seen: 04/24/24 09:26 Interval history: Patient is an 83-year-old male who was admitted for further evaluation and treatment of anemia with possible GI bleed HGB as low as 6.9. patient resides at a snf facility and had follow-up labs which indicated a significant drop in his hemoglobin he is currently on aspirin and apixaban. 04/24/2024: Assumed Care Patient with no complaints denies any blood in stool. GI planned for EGD and colonoscopy however patient currently is refusing. Iron was low add iron supplement and continue with monitoring H&H overnight. Review of Systems Review of Systems: All systems reviewed & are unremarkable except as noted in HPI and below Exam Narrative: GENERAL: Alert and oriented x 3. No acute distress. HEENT: Moist mucous membranes. LUNGS: Clear to auscultation bilaterally. No accessory muscle use. CARDIOVASCULAR: Regular rate and rhythm. No murmur. No JVD. S1-S2 ABDOMEN: Soft, non tenderness and non-distended. EXTREMITIES: No edema. Non-tender SKIN: No rashes or lesions. Skin warm, dry. NEUROLOGIC: No focal neurological deficits. Objective Data Vital Signs Vital Signs: Vital Signs - 24 hr 04/23/24 16:05 04/23/24 16:12 04/23/24 16:35 Temperature 98.3 F 98.3 F Pulse Rate 67 67 Respiratory Rate 20 20 20 Blood Pressure 127/67 127/67 Pulse Oximetry 97 98 97 Oxygen Delivery Room Air 04/23/24 17:30 04/23/24 18:01 04/23/24 18:21 Temperature Pulse Rate 59 L 66 65 Respiratory Rate 19 21 H 18 Blood Pressure 105/61 96/85 L 107/94 H Pulse Oximetry 98 100 97 Oxygen Delivery 04/23/24 18:21 04/23/24 18:42 04/23/24 19:22 Temperature Pulse Rate 60 59 L 59 L Respiratory Rate 17 20 14 Blood Pressure 107/94 H 125/73 127/62 Pulse Oximetry 96 96 97 Oxygen Delivery 04/23/24 20:22 04/23/24 20:41 04/23/24 21:01 Temperature Pulse Rate 55 L 56 L 62 Respiratory Rate 18 16 19 Blood Pressure 121/70 136/79 Pulse Oximetry 97 97 Oxygen Delivery 04/23/24 21:21 04/23/24 21:41 04/23/24 22:01 Temperature Pulse Rate 60 60 64 Respiratory Rate 20 14 16 Blood Pressure 137/80 117/81 104/68 Pulse Oximetry 97 96 Oxygen Delivery 04/24/24 00:00 04/24/24 02:23 04/24/24 02:32 Temperature 97.5 F L 97.8 F Pulse Rate 67 50 L Respiratory Rate 20 18 Blood Pressure 138/63 102/67 Pulse Oximetry 98 100 Oxygen Delivery Room Air 04/24/24 03:30 04/24/24 04:00 04/24/24 04:00 Temperature 97.9 F 97.8 F Pulse Rate 63 58 L 49 L Respiratory Rate 20 16 Blood Pressure 120/70 133/60 Pulse Oximetry 100 100 Oxygen Delivery 04/24/24 06:10 Temperature 96.7 F L Pulse Rate 58 L Respiratory Rate 18 Blood Pressure 108/67 Pulse Oximetry 100 Oxygen Delivery Intake/Output Intake/Output: Intake & Output 04/21/24 04/22/24 04/23/24 04/24/24 23:59 23:59 23:59 23:59 Intake Total 375 Output Total 350 Balance 25 Meds/Results Medications: Active Medications Generic Name Dose Route Start Last Admin Trade Name Freq PRN Reason Stop Dose Admin Acetaminophen 650 mg 04/24/24 00:48 Acetaminophen 325 Mg Tablet PO Q4H PRN Mild Pain (1-3) or Fever Albuterol/Ipratropium 3 ml 04/24/24 00:48 Ipratropium 0.5 Mg/Albuterol Sulfate 2.5 Mg Ampul.Neb 3 Ml INHALATION Q4HRT PRN shortness of breath/Wheezing Guaifenesin/Dextromethorphan 10 ml 04/24/24 00:48 Guaifenesin/Dextromethorphan 10 Ml Udc PO Q4H PRN Cough Melatonin 5 mg 04/24/24 00:48 Melatonin 5 Mg Tablet PO HS PRN Insomnia Pantoprazole Sodium 40 mg 04/24/24 00:50 04/24/24 02:52 Pantoprazole Sodium Iv 40 Mg Vial IV PUSH 40 mg Q12HR DOMONIQUE Administration Polyethylene Glycol 17 gm 04/24/24 00:48 Polyethylene Glycol 3350 17 Gm Powd.Pack PO QAM PRN Constipation Prochlorperazine Edisylate 10 mg 04/24/24 00:48 Prochlorperazine Edisylate 10 Mg/2 Ml Vial IV PUSH Q6H PRN Nausea And Vomiting Radiology Results: ITS Impressions Chest X-Ray 04/23/24 18:25 IMPRESSION: Cardiomegaly with cardiac decompensation and pulmonary edema. Superimposed pneumonitis is not excluded. Clinical correlation advised. Labs Labs: Laboratory Results - last 24 hr 04/23/24 04/23/24 04/23/24 17:35 17:35 17:53 WBC 3.9 L RBC 2.65 L Hgb 7.1 L Hct 23.8 L MCV 89.8 MCH 26.8 MCHC 29.8 L RDW 16.3 H Plt Count 286 D MPV 9.6 Immature Gran % (Auto) 0.3 Neut % (Auto) 41.8 L Lymph % (Auto) 42.6 Marion % (Auto) 12.0 H Eos % (Auto) 2.3 Baso % (Auto) 1.0 Lymph # (Auto) 1.67 Marion # (Auto) 0.5 Eos # (Auto) 0.1 Baso # (Auto) 0.0 Abs Immat Gran (auto) 0.01 Absolute Neuts (auto) 1.6 Absolute Nucleated RBC 0.000 Band Neutrophils % Not Reportable Nucleated RBC % 0.0 Platelet Estimate Adequate Hypochromasia 1+ Ovalocytes 1+ Schistocytes None seen Absolute Retic 0.11 H Percent Retic 4.58 H Immature Retic Fraction 18.5 H Retic Hgb Content 19.7 L PT 17.8 H INR 1.4 APTT 36.0 Sodium 140 Potassium 4.1 Chloride 106 Carbon Dioxide 25 Anion Gap 9 BUN 14 Creatinine 1.01 Estim Creat Clear Calc 51 Estimated GFR > 60 Glucose 79 Calcium 8.7 Iron TIBC % Saturation Transferrin Ferritin Total Bilirubin 0.3 Direct Bilirubin AST 18 ALT 14 Alkaline Phosphatase 67 Lactate Dehydrogenase Troponin I < 0.012 Cancelled Total Protein 6.0 L Albumin 3.6 Vitamin B12 Folate TSH (Reflex) Free T4 Total T3 Monoscreen Influenza A (RT-PCR) Influenza B (RT-PCR) RSV (RT-PCR) SARS-CoV-2 RNA (RT-PCR) Group A Strep (PCR) Not detected Blood Type O Positive Antibody Screen Negative MICHAEL, IgG Interpret Neg MICHAEL, Complement Interp Not Performed Indirect Antiglob Test Negative Crossmatch See Detail 04/23/24 04/23/24 04/24/24 20:49 22:04 00:37 WBC RBC Hgb 6.9 L* Hct 23.0 L MCV MCH MCHC RDW Plt Count MPV Immature Gran % (Auto) Neut % (Auto) Lymph % (Auto) Marion % (Auto) Eos % (Auto) Baso % (Auto) Lymph # (Auto) Marion # (Auto) Eos # (Auto) Baso # (Auto) Abs Immat Gran (auto) Absolute Neuts (auto) Absolute Nucleated RBC Band Neutrophils % Nucleated RBC % Platelet Estimate Hypochromasia Ovalocytes Schistocytes Absolute Retic Percent Retic Immature Retic Fraction Retic Hgb Content PT INR APTT Sodium Potassium Chloride Carbon Dioxide Anion Gap BUN Creatinine Estim Creat Clear Calc Estimated GFR Glucose Calcium Iron 22 L TIBC 336 % Saturation 7 L Transferrin 253 Ferritin 13.80 Total Bilirubin 0.3 Direct Bilirubin 0.0 AST ALT Alkaline Phosphatase Lactate Dehydrogenase 131 Troponin I < 0.012 Total Protein Albumin Vitamin B12 478.0 Folate > 20.0 H TSH (Reflex) 4.550 Free T4 0.95 Total T3 0.97 Monoscreen Positive A Influenza A (RT-PCR) Negative Influenza B (RT-PCR) Negative RSV (RT-PCR) Negative SARS-CoV-2 RNA (RT-PCR) Negative Group A Strep (PCR) Blood Type Antibody Screen MICHAEL, IgG Interpret MICHAEL, Complement Interp Indirect Antiglob Test Crossmatch 04/24/24 08:28 WBC RBC Hgb Hct MCV MCH MCHC RDW Plt Count MPV Immature Gran % (Auto) Neut % (Auto) Lymph % (Auto) Marion % (Auto) Eos % (Auto) Baso % (Auto) Lymph # (Auto) Marion # (Auto) Eos # (Auto) Baso # (Auto) Abs Immat Gran (auto) Absolute Neuts (auto) Absolute Nucleated RBC Band Neutrophils % Nucleated RBC % Platelet Estimate Hypochromasia Ovalocytes Schistocytes Absolute Retic Percent Retic Immature Retic Fraction Retic Hgb Content PT INR APTT Sodium 139 Potassium 4.2 Chloride 108 H Carbon Dioxide 23 Anion Gap 8 BUN 13 Creatinine 0.86 Estim Creat Clear Calc 60 Estimated GFR > 60 Glucose 77 Calcium 8.5 Iron TIBC % Saturation Transferrin Ferritin Total Bilirubin 0.7 Direct Bilirubin AST 16 L ALT 14 Alkaline Phosphatase 62 Lactate Dehydrogenase Troponin I Total Protein 6.0 L Albumin 3.4 L Vitamin B12 Folate TSH (Reflex) Free T4 Total T3 Monoscreen Influenza A (RT-PCR) Influenza B (RT-PCR) RSV (RT-PCR) SARS-CoV-2 RNA (RT-PCR) Group A Strep (PCR) Blood Type Antibody Screen MICHAEL, IgG Interpret MICHAEL, Complement Interp Indirect Antiglob Test Crossmatch Quality VTE Prophylaxis VTE prophylaxis: mechanical ordered If No VTE Prophylaxis Answer both mechanical and pharmacologic: Reason no pharmacologic proph: medical contraindication -Patient's previous records reviewed on admission -ER notes reviewed in detail on admission -discussed all findings and current treatment plan with patient/Family/POA -Consultations reviewed for recommendations -Patient's disposition for safe discharge discussed with caser up Dictation performed by [employer] direct speech recognition software, therefore rail walker variants and typographical errors may occur. Hospitalist MIPS Advance Care Plan I have confirmed that the patient's Advanced Care Plan is present, code status is documented, or surrogate decision maker is listed in patient medical record.: Yes Medication Reconciliation I have utilized all available resources to obtain, update and review the patients current medications (includes all prescriptions, OTC, herbals, cannabis, and nutritional supplements).: Yes The patient is not eligible for med reconciliation; the patient is in a emergent medical situation where delaying treatment would jeopardize the patients health.: No
[2024-04-24 09:31] LABS: NT Pro B Type Natriuretic Pept 3050 pg/mL (19.9-100)
[2024-04-24] MEDS: polyethylene glycoL 3350 17 GM POWD.PACK PO (10:11)
[2024-04-24] MEDS: SACCHAROMYCES BOULARDII 250 MG CAPSULE PO (10:11)
[2024-04-24] MEDS: buPROPion HCL SR (12 HR) 150 MG TAB PO ×2 (10:11→20:59)
[2024-04-24] MEDS: FINASTERIDE 5 MG TABLET PO (10:11)
[2024-04-24] MEDS: FLUoxetine HCL 20 MG CAPSULE PO (10:11)
--- NOTE | 2024-04-24 10:30 | WPDGICN ---
Assessment and Plan Assessment and plan (1) Acute anemia: Code(s): D64.9 - Anemia, unspecified Status: Acute Assessment and Plan: s/p transfusion no overt gib but he is on chronic anticoagulation ER noted occult blood in stool after rectal exam, nothing obvious I recommend to proceed with egd and colonoscopy but patient does not want to. He says that does not have any pain or has not seen any bleeding I will check again on him tomorrow but it seems that he does not want to have any scopes at this moment hold eliquis for now (2) Occult blood in stools: Code(s): R19.5 - Other fecal abnormalities Status: Acute (3) Chronic anticoagulation: Code(s): Z79.01 - care home (current) use of anticoagulants Status: Acute (4) Effusion, left knee: Code(s): M25.462 - Effusion, left knee Status: Inactive GI Consult Note Consult date/time: 04/24/24 10:30 Reason for consult: fobt +, anemia HPI: Will Chung is a 83 year old male who currently is staying in rehab for a patella fracture that has had a complicated course unable to walk. Also Afib on eliquis and asa. He had routine blood work that showed anemia (last hgb 12), here 6.9. He denies overt gib, he says that had colonoscopy probably more than 5 years ago. He had some fatigue but otherwise did not know why he is here. BUN and creatinine normal. Review of Systems Constitutional: Constitutional: Denies headache(s) and Denies weakness Eyes: Eyes: Denies blurry vision ENT: Reports Normal hearing present, Denies headache(s) and Denies neck pain Cardiovascular: Cardiovascular: Denies chest pain Respiratory: Respiratory: Denies cough Gastrointestinal: Gastrointestinal: Reports no additional gastrointestinal complaints Genitourinary: Genitourinary: Denies dysuria Musculoskeletal: Musculoskeletal: Reports arthralgias Integumentary/Breasts: Skin/Breast: Denies dry skin Neurologic: Reports Normal hearing present and Denies headache(s) Psychiatric: Psychiatric: Denies anxiety [facility] Past Medical History Medical History (Updated 04/24/24 @ 10:34 by [place] MD) Occult blood in stools Acute anemia Hypertension BPH (benign prostatic hyperplasia) RLS (restless legs syndrome) Social History Social History Smoking packs per day: 3 Smoking cigarettes per day: 60.0 Smoking status: Former smoker Tobacco type: cigarettes Smoking end date: 05/08/1959 Alcohol intake: never Substance use: never Do You Feel Safe in your Home?: Yes Lack of Transportation: No Lack of Food: Never True Current Housing: I Have Housing Concerned About Future Housing: No Difficulty Paying Gas/Electric Bills: No Difficulty Paying for Meds: No Currently Unemployed: No Education: Master's Degree or Higher Difficulty w/ Childcare or Family Care: No Spiritual care concerns: No Meds Home Medications and Allergies Home Medications ?Medication ?Instructions ?Recorded ?Confirmed ?Type Saccharomyces boulardii 250 mg 250 mg PO DAILY 04/24/24 04/24/24 History capsule (Daily Probiotic (S. boulardii)) acetaminophen 500 mg capsule 500 mg PO Q6H PRN pain 04/24/24 04/24/24 History amlodipine 5 mg tablet 5 mg PO DAILY 04/24/24 04/24/24 History apixaban 5 mg tablet (Eliquis) 5 mg PO BID 04/24/24 04/24/24 History aspirin 81 mg tablet,delayed 81 mg PO DAILY 04/24/24 04/24/24 History release (Adult Aspirin Regimen) bupropion HCl 150 mg tablet,12 hr 150 mg PO Q12H 04/24/24 04/24/24 History sustained-release finasteride 5 mg tablet 5 mg PO DAILY 04/24/24 04/24/24 History fluoxetine 20 mg capsule 20 mg PO DAILY 04/24/24 04/24/24 History meloxicam 7.5 mg tablet 7.5 mg PO DAILY 04/24/24 04/24/24 History metoprolol succinate 50 mg 50 mg PO DAILY 04/24/24 04/24/24 History tablet,extended release 24 hr miconazole nitrate 2 % topical 1 applic topical BID 04/24/24 04/24/24 History powder (Antifungal (miconazole)) [id number] gluconate 9 15 ml PO DAILY 04/24/24 04/24/24 History mg iron/15 mL (15 mL) oral liquid (Centrum) ondansetron 4 mg disintegrating 4 mg PO Q8H PRN nausea and vomiting 04/24/24 04/24/24 History tablet polyethylene glycol 3350 17 8.5 g PO DAILY 04/24/24 04/24/24 History gram/dose oral powder (ClearLax) ropinirole 0.5 mg tablet 0.5 mg PO HS 04/24/24 04/24/24 History sulfamethoxazole 800 1 tablet PO Q12H 04/24/24 04/24/24 History mg-trimethoprim 160 mg tablet (Bactrim DS) tizanidine 4 mg tablet 4 mg PO Q8H 04/24/24 04/24/24 History vibegron 75 mg tablet (Gemtesa) 75 mg PO DAILY 04/24/24 04/24/24 History Allergies Allergy/AdvReac Type Severity Reaction Status Date / Time No Known Allergies Allergy Mild Verified 04/23/24 16:14 Vital Signs Vital Signs - 24 hr 04/23/24 16:05 04/23/24 16:12 04/23/24 16:35 Temperature 98.3 F 98.3 F Pulse Rate 67 67 Respiratory Rate 20 20 20 Blood Pressure 127/67 127/67 Pulse Oximetry 97 98 97 Oxygen Delivery Room Air 04/23/24 17:30 04/23/24 18:01 04/23/24 18:21 Temperature Pulse Rate 59 L 66 65 Respiratory Rate 19 21 H 18 Blood Pressure 105/61 96/85 L 107/94 H Pulse Oximetry 98 100 97 Oxygen Delivery 04/23/24 18:21 04/23/24 18:42 04/23/24 19:22 Temperature Pulse Rate 60 59 L 59 L Respiratory Rate 17 20 14 Blood Pressure 107/94 H 125/73 127/62 Pulse Oximetry 96 96 97 Oxygen Delivery 04/23/24 20:22 04/23/24 20:41 04/23/24 21:01 Temperature Pulse Rate 55 L 56 L 62 Respiratory Rate 18 16 19 Blood Pressure 121/70 136/79 Pulse Oximetry 97 97 Oxygen Delivery 04/23/24 21:21 04/23/24 21:41 04/23/24 22:01 Temperature Pulse Rate 60 60 64 Respiratory Rate 20 14 16 Blood Pressure 137/80 117/81 104/68 Pulse Oximetry 97 96 Oxygen Delivery 04/24/24 00:00 04/24/24 02:23 04/24/24 02:32 Temperature 97.5 F L 97.8 F Pulse Rate 67 50 L Respiratory Rate 20 18 Blood Pressure 138/63 102/67 Pulse Oximetry 98 100 Oxygen Delivery Room Air 04/24/24 03:30 04/24/24 04:00 04/24/24 04:00 Temperature 97.9 F 97.8 F Pulse Rate 63 58 L 49 L Respiratory Rate 20 16 Blood Pressure 120/70 133/60 Pulse Oximetry 100 100 Oxygen Delivery 04/24/24 06:10 Temperature 96.7 F L Pulse Rate 58 L Respiratory Rate 18 Blood Pressure 108/67 Pulse Oximetry 100 Oxygen Delivery Exam Const: General: comfortable HENMT: Ears: TM's normal bilaterally Mouth: Yes moist mucous membranes Eyes: General: appearance normal, both eyes and all related structures Pupils: Equal, round and reactive pupils present Other: conjuctival pallor Neck: Neck: supple Resp: Effort & Inspection: normal respiratory effort Cardio: Rate: regular rate GI: GI Palp: Yes Soft to palpation and No Tenderness to palpation present (GI) Auscultation: normal bowel sounds Skin: General skin exam: normal color Neuro: General: No gait normal Extrem: Other: surgical scar left knee Psych: Mental Status: mental status grossly normal Results Labs 04/24/24 08:28 04/24/24 08:28 Labs: Short CBC 04/23/24 04/24/24 04/24/24 Range/Units 17:35 00:37 08:28 WBC 3.9 L 3.9 L (4.5-10.0) K/mm3 Hgb 7.1 L 6.9 L* 8.0 L (14.0-18.0) g/dL Hct 23.8 L 23.0 L 26.3 L (42.0-52.0) % Plt Count 286 D 251 (150-375) k/mm3 BMP 04/23/24 04/24/24 17:35 08:28 Sodium 140 139 Potassium 4.1 4.2 Chloride 106 108 H Carbon Dioxide 25 23 BUN 14 13 Creatinine 1.01 0.86 Glucose 79 77 Calcium 8.7 8.5 Cardiac Enzymes 04/23/24 04/23/24 04/23/24 Range/Units 17:35 17:35 20:49 Troponin I < 0.012 Cancelled < 0.012 (0.000-0.034) ng/mL Liver Function 04/23/24 04/23/24 04/24/24 Range/Units 17:35 20:49 08:28 Total Bilirubin 0.3 0.3 0.7 (0.2-1.3) mg/dL Direct Bilirubin 0.0 (0-0.3) mg/dL AST 18 16 L (17-59) U/L ALT 14 14 (6-50) U/L Alkaline Phosphatase 67 62 (38-126) U/L Albumin 3.6 3.4 L (3.5-5.1) g/dL
[2024-04-24 15:29] LABS: Hematocrit 25.5 % (42.0-52.0); Hemoglobin 7.8 g/dL (14.0-18.0)
[2024-04-24] MEDS: FERROUS SULFATE 325 MG TABLET DR PO (17:27)
[2024-04-24 18:37] LABS: IFOB Positive Control Positive; Immunochemical Fecal Occult Bl Negative (N)
[2024-04-24] MEDS: rOPINIRole HCL 0.5 MG TABLET PO (20:59)
[2024-04-24] MEDS: MELATONIN 5 MG TABLET PO (22:49)
[2024-04-25] VITALS (9 sets, daily range): BP systolic 86–148; BP diastolic 50–79; PULSE 58–86; RESP 18–20; TEMP 36.2–36.8; O2SAT 95–100
[2024-04-25 07:05] LABS: Basophils Percent Auto 0.9 % (0.2-1.2); Eosinophils Absolute Auto 0.1 K/mm3 (0-0.3); Eosinophils Percent Auto 2.4 % (0-4.4); Hematocrit 26.6 % (42.0-52.0); Hemoglobin 8.1 g/dL (14.0-18.0); Immature Granulocyte Absolute 0.01 K/mm3 (0.00-0.031); Immature Granulocyte Percent A 0.3 % (0-0.5); Lymphocytes Absolute Auto 1.58 K/mm3 (0.9-3.2); Lymphocytes Percent Auto 46.9 % (18.3-44.2); Mean Corpuscular HGB Conc 30.5 g/dl (32-36); Mean Corpuscular Hemoglobin 27.4 pg (26-34); Mean Corpuscular Volume 89.9 fl (80-100); Mean Platelet Volume 9.2 fl (7.4-10.4); Monocytes Absolute Auto 0.4 K/mm3 (0.1-0.6); Monocytes Percent Auto 12.5 % (2.6-8.5); Neutrophils Absolute Auto 1.3 K/mm3 (1.3-6.7); Platelet Count Result 253 k/mm3 (150-375); Red Blood Count 2.96 M/mm3 (4.6-6.20); Red Cell Distribution Width 15.8 % (11.5-14.5); White Blood Count 3.4 K/mm3 (4.5-10.0)
[2024-04-25 07:14] LABS: Alanine Aminotransferase 13 U/L (6-50); Albumin Level 3.4 g/dL (3.5-5.1); Alkaline Phosphatase 64 U/L (38-126); Anion Gap 9 mmol/L (4-12); Aspartate Amino Transferase 16 U/L (17-59); Bilirubin,Total 0.6 mg/dL (0.2-1.3); Blood Urea Nitrogen 8 mg/dL (9-20); Calcium 8.7 mg/dL (8.4-10.2); Carbon Dioxide 21 mmol/L (22-30); Chloride 108 mmol/L (98-107); Estimated CRCL calculation 67 ml/min; Estimated Glomerular Filt Rate > 60; Glucose 85 mg/dL (65-110); Potassium 3.6 mmol/L (3.4-5.0); Sodium 138 mmol/L (137-145)
--- NOTE | 2024-04-25 07:59 | PM.DS ---
DS: Admitting Diagnosis Discharge Date 04/25/2024 Admitting Diagnosis Anemia/bradycardia DS: Discharge Diagnosis Discharge Diagnosis (1) Anemia: Code(s): D64.9 - Anemia, unspecified Status: Acute Assessment and Plan: patient was sent in from his rehab center after follow-up labs indicated his hemoglobin had dropped to 7.1 last year 2023 his hemoglobin was 13.2 patient is on chronic anticoagulation aspirin apixaban hemodynamically stable HGb 7.1>6.9 Transfused 1 unit PRBC H&H q6HR GI consulted occult stool ordered TIBC 22/Sat 7 PPI BID Transfuse PRBC if Hgb <7.0 Holding ASA/eliquis Iron supplement added BID (2) Hypertension: Code(s): I10 - Essential (primary) hypertension Status: Acute Assessment and Plan: will resume amlodipine and metoprolol as BP tolerates reviewed BP this a.m. when 108/67 re-evaluate after unit of blood (3) BPH (benign prostatic hyperplasia): Code(s): N40.0 - Benign prostatic hyperplasia without lower urinary tract symptoms Status: Acute Assessment and Plan: resume Proscar monitor for urinary retention (4) Chronic anticoagulation: Code(s): Z79.01 - longterm (current) use of anticoagulants Status: Acute Assessment and Plan: patient on ASA, apixaban at home currently holding medications to possible GI bleed DS: Summary Time Spent with Patient Time attestation: Total time spent providing and/or coordinating discharge services: Exam Narrative: GENERAL: Alert and oriented x 3. No acute distress. HEENT: Moist mucous membranes. LUNGS: Clear to auscultation bilaterally. No accessory muscle use. CARDIOVASCULAR: Regular rate and rhythm. No murmur. No JVD. S1-S2 ABDOMEN: Soft, non tenderness and non-distended. EXTREMITIES: No edema. Non-tender SKIN: No rashes or lesions. Skin warm, dry. NEUROLOGIC: No focal neurological deficits. DS: Data Data Completed and Pending Labs on day of discharge: Labs from last 24 hours 04/25/24 04/24/24 04/24/24 06:42 17:59 13:57 WBC 3.4 L RBC 2.96 L Hgb 8.1 L 7.8 L Hct 26.6 L 25.5 L MCV 89.9 MCH 27.4 MCHC 30.5 L RDW 15.8 H Plt Count 253 MPV 9.2 Immature Gran % (Auto) 0.3 Neut % (Auto) 37.0 L Lymph % (Auto) 46.9 H [place] % (Auto) 12.5 H Eos % (Auto) 2.4 Baso % (Auto) 0.9 Lymph # (Auto) 1.58 [place] # (Auto) 0.4 Eos # (Auto) 0.1 Baso # (Auto) 0.0 Abs Immat Gran (auto) 0.01 Absolute Neuts (auto) 1.3 Absolute Nucleated RBC 0.000 Nucleated RBC % 0.0 Sodium 138 Potassium 3.6 Chloride 108 H Carbon Dioxide 21 L Anion Gap 9 BUN 8 L D Creatinine 0.76 Estim Creat Clear Calc 67 Estimated GFR > 60 Glucose 85 Calcium 8.7 Total Bilirubin 0.6 AST 16 L ALT 13 Alkaline Phosphatase 64 NT-Pro-B Natriuret Pep Total Protein 6.0 L Albumin 3.4 L Stl Occult Blood (IFOB) Negative 04/24/24 08:28 WBC 3.9 L RBC 2.87 L Hgb 8.0 L Hct 26.3 L MCV 91.6 MCH 27.9 MCHC 30.4 L RDW 15.9 H Plt Count 251 MPV 9.3 Immature Gran % (Auto) 0.3 Neut % (Auto) 40.3 L Lymph % (Auto) 42.3 [place] % (Auto) 13.5 H Eos % (Auto) 2.6 Baso % (Auto) 1.0 Lymph # (Auto) 1.63 [place] # (Auto) 0.5 Eos # (Auto) 0.1 Baso # (Auto) 0.0 Abs Immat Gran (auto) 0.01 Absolute Neuts (auto) 1.6 Absolute Nucleated RBC 0.000 Nucleated RBC % 0.0 Sodium 139 Potassium 4.2 Chloride 108 H Carbon Dioxide 23 Anion Gap 8 BUN 13 Creatinine 0.86 Estim Creat Clear Calc 60 Estimated GFR > 60 Glucose 77 Calcium 8.5 Total Bilirubin 0.7 AST 16 L ALT 14 Alkaline Phosphatase 62 NT-Pro-B Natriuret Pep 3050 H Total Protein 6.0 L Albumin 3.4 L Stl Occult Blood (IFOB) Discharge Plan Discharge Attending physician on discharge: Zaid Castrejon Consulting providers: [place]; Mary Castelan Discharging Clinician: Mary Castelan Anticipated Discharge Date/Time: 04/25/24 07:50 Patient Disposition: SNF Activity: may shower and as tolerated Diet: heart healthy Discharge Instructions: Anemia: I have prescribed Iron supplements please take as directed May resume your eliquis and ASA upon discharge please report any blood in stool and I am recommending a follow-up CBC in 1 week to monitor your H&H I have also prescribed a Protonix please take as prescribe I you should change your mind and proceed with an EGD/colonoscopy I have including the contact information to schedule the outpatient procedure Low heart rate (bradycardia) During your admission your heart rate was low at this time I have decreased your metoprolol to 12.5mg Daily we held this medication and your HR improved. How can you care for yourself at home? ? Keep track of any new symptoms or changes in your symptoms. ? Rest until you feel better. ? Be safe with medicines. Take your medicines exactly as prescribed. Call your doctor if you think you are having a problem with your medicine. ? Do not drive after taking a prescription pain medicine. ? Ensure to follow-up with primary care physician as indicated and provide updated medication list provided to you at discharge. When should you call for help? Call 911 anytime you think you may need emergency care. For example, call if: ? You passed out (lost consciousness). Call your doctor now or seek immediate medical care if: ? You have new symptoms like fever, difficulty breathing, Chest pain, vomiting, or rash. ? You have new or different pain. ? You are confused and are having trouble thinking clearly. ? Your symptoms are getting worse. Watch closely for changes in your health, and be sure to contact your doctor if: ? You do not get better as expected. Patient Instructions: Iron Supplements (By mouth), Pantoprazole (By mouth), Anemia (DC) Patient Language: Armenian Stand Alone Forms: General Discharge Information, Longterm Discharge Follow-up/Referrals: Helen,Will Rossi MD [Primary Care Provider] - 2 Weeks [place] MD [Physician] - Call for Appointment (To schedule outpatient EGD/colonoscopy) Discharge Medications: New metoprolol succinate 25 mg tablet extended release 24 hr 12.5 mg PO DAILY Qty: 30 0RF ferrous sulfate 325 mg (65 mg iron) Tablet,Delayed Release (Dr/Ec) 325 mg PO BID Qty: 60 0RF docusate sodium 100 mg Capsule 100 mg PO Q12HR Qty: 60 0RF pantoprazole 40 mg tablet,delayed release (DR/EC) 40 mg PO HS 42 Days Qty: 42 0RF Continued finasteride 5 mg tablet 5 mg PO DAILY Saccharomyces boulardii [Daily Probiotic (S. boulardii)] 250 mg capsule 250 mg PO DAILY fluoxetine 20 mg capsule 20 mg PO DAILY Gemtesa 75 mg tablet 75 mg PO DAILY polyethylene glycol 3350 [ClearLax] 17 gram/dose powder 8.5 g PO DAILY miconazole nitrate [Antifungal (miconazole)] 2 % powder 1 applic topical BID ropinirole 0.5 mg tablet 0.5 mg PO HS tizanidine 4 mg tablet 4 mg PO Q8H ondansetron 4 mg tablet,disintegrating 4 mg PO Q8H PRN (Reason: nausea and vomiting) Eliquis 5 mg tablet 5 mg PO BID Centrum 9 mg iron/ 15 mL (15 mL) liquid 15 ml PO DAILY bupropion HCl 150 mg tablet sustained-release 12 hr 150 mg PO Q12H aspirin [Adult Aspirin Regimen] 81 mg tablet,delayed release (DR/EC) 81 mg PO DAILY amlodipine 5 mg tablet 5 mg PO DAILY acetaminophen 500 mg capsule 500 mg PO Q6H PRN (Reason: pain) Discontinued metoprolol succinate 50 mg tablet extended release 24 hr 50 mg PO DAILY meloxicam 7.5 mg tablet 7.5 mg PO DAILY sulfamethoxazole-trimethoprim [Bactrim DS] 800-160 mg tablet 1 tablet PO Q12H Date of admission: 04/23/24 21:58 Primary Care Provider: Helen,Will Rossi Admitting Provider: Fred Cates Attending physician on admission: Fred Cates Condition: Stable Quality VTE Prophylaxis VTE prophylaxis: mechanical ordered
[2024-04-25] MEDS: FINASTERIDE 5 MG TABLET PO (09:12)
[2024-04-25] MEDS: FLUoxetine HCL 20 MG CAPSULE PO (09:12)
[2024-04-25] MEDS: SACCHAROMYCES BOULARDII 250 MG CAPSULE PO (09:12)
[2024-04-25] MEDS: FERROUS SULFATE 325 MG TABLET DR PO ×2 (09:12→17:22)
[2024-04-25] MEDS: PANTOPRAZOLE SODIUM IV 40 MG VIAL IV PUSH ×2 (09:12→20:31)
[2024-04-25] MEDS: buPROPion HCL SR (12 HR) 150 MG TAB PO ×2 (09:12→20:31)
[2024-04-25] MEDS: DOCUSATE SODIUM 100 MG CAPSULE PO ×2 (09:12→20:30)
--- NOTE | 2024-04-25 10:20 | WPDGIPROGNO ---
Progress Note: A&P Assessment and Plan (1) Acute anemia: Code(s): D64.9 - Anemia, unspecified Status: Acute Assessment and Plan: now he is agreeable to have egd and colonoscopy to assess if source of anemia hold eliquis bowel prep today (2) Occult blood in stools: Code(s): R19.5 - Other fecal abnormalities Status: Acute (3) Chronic anticoagulation: Code(s): Z79.01 - residential (current) use of anticoagulants Status: Acute Assessment and Plan: on hold (4) GIB (gastrointestinal bleeding): Code(s): K92.2 - Gastrointestinal hemorrhage, unspecified Status: Acute (5) Knee pain, left: Code(s): M25.562 - Pain in left knee Status: Acute Subjective Date/time seen: 04/25/24 10:20 Interval history: he is comfortable, no signs of active gib Review of Systems Review of Systems: All systems reviewed & are unremarkable except as noted in HPI and below Exam Const: General: comfortable HENMT: Ears: TM's normal bilaterally Mouth: Yes moist mucous membranes Eyes: General: appearance normal, both eyes and all related structures Pupils: Equal, round and reactive pupils present Other: conjuctival pallor Neck: Neck: supple Resp: Effort & Inspection: normal respiratory effort Cardio: Rate: regular rate GI: GI Palp: Yes Soft to palpation and No Tenderness to palpation present (GI) Auscultation: normal bowel sounds Skin: General skin exam: normal color Neuro: General: No gait normal Extrem: Other: surgical scar left knee Psych: Mental Status: mental status grossly normal Objective Data Vital Signs Vital Signs: Vital Signs - 24 hr 04/24/24 11:38 04/24/24 12:04 04/24/24 15:24 Temperature 97.8 F 98.2 F Pulse Rate 60 54 L 60 Respiratory Rate 16 16 Blood Pressure 106/66 115/69 Pulse Oximetry 99 100 Oxygen Delivery 04/24/24 16:02 04/24/24 20:00 04/24/24 20:00 Temperature 98.6 F Pulse Rate 49 L 64 Respiratory Rate 16 Blood Pressure 116/71 Pulse Oximetry 100 Oxygen Delivery CPAP 04/24/24 20:00 04/24/24 22:48 04/25/24 00:00 Temperature 98.3 F Pulse Rate 56 L 61 Respiratory Rate 20 Blood Pressure 112/79 Pulse Oximetry 95 100 Oxygen Delivery Autopap 04/25/24 00:00 04/25/24 03:50 04/25/24 04:00 Temperature Pulse Rate 58 L 61 Respiratory Rate Blood Pressure Pulse Oximetry 95 Oxygen Delivery Autopap 04/25/24 04:00 Temperature 98.3 F Pulse Rate 58 L Respiratory Rate 20 Blood Pressure 148/76 H Pulse Oximetry 100 Oxygen Delivery Intake/Output Intake/Output: Intake & Output 04/22/24 04/23/24 04/24/24 04/25/24 23:59 23:59 23:59 23:59 Intake Total 2075 150 Output Total 1150 300 Balance 925 -150 Meds/Results Medications: Active Medications Generic Name Dose Route Start Last Admin Trade Name Freq PRN Reason Stop Dose Admin Acetaminophen 650 mg 04/24/24 00:48 Acetaminophen 325 Mg Tablet PO Q4H PRN Mild Pain (1-3) or Fever Albuterol/Ipratropium 3 ml 04/24/24 00:48 Ipratropium 0.5 Mg/Albuterol Sulfate 2.5 Mg Ampul.Neb 3 Ml INHALATION Q4HRT PRN shortness of breath/Wheezing Amlodipine Besylate 5 mg 04/24/24 09:35 04/24/24 09:52 Amlodipine Besylate 5 Mg Tablet PO Not Given DAILY DOMONIQUE Bupropion HCl 150 mg 04/24/24 09:30 04/25/24 09:12 Bupropion Hcl Sr (12 Hr) 150 Mg Tab PO 150 mg Q12HR DOMONIQUE Administration Docusate Sodium 100 mg 04/24/24 21:00 04/25/24 09:12 Docusate Sodium 100 Mg Capsule PO 100 mg Q12HR DOMONIQUE Administration Ferrous Sulfate 325 mg 04/24/24 17:00 04/25/24 09:12 Ferrous Sulfate [address] PO 325 mg BID DOMONIQUE Administration Finasteride 5 mg 04/24/24 09:35 04/25/24 09:12 Finasteride 5 Mg Tablet PO 5 mg DAILY DOMONIQUE Administration Fluoxetine HCl 20 mg 04/24/24 09:35 04/25/24 09:12 Fluoxetine Hcl 20 Mg Capsule PO 20 mg DAILY DOMONIQUE Administration Guaifenesin/Dextromethorphan 10 ml 04/24/24 00:48 Guaifenesin/Dextromethorphan 10 Ml Udc PO Q4H PRN Cough Melatonin 5 mg 04/24/24 00:48 04/24/24 22:49 Melatonin 5 Mg Tablet PO 5 mg HS PRN Administration Insomnia Metoprolol Succinate 50 mg 04/24/24 09:35 04/24/24 09:52 Metoprolol Succinate Ext Rel 50 Mg Tabcr PO Not Given DAILY DOMONIQUE Miscellaneous Information 0 each 04/24/24 00:01 Miconazole Powder Is Subbed For Tolnaftate Powder - This Product Is Acquired From [facility] 05/24/24 00:00 CLARIFY DOMONIQUE Pantoprazole Sodium 40 mg 04/24/24 00:50 04/25/24 09:12 Pantoprazole Sodium Iv 40 Mg Vial IV PUSH 40 mg Q12HR DOMONIQUE Administration Polyethylene Glycol 17 gm 04/24/24 00:48 04/24/24 10:11 Polyethylene Glycol 3350 17 Gm Powd.Pack PO 17 gm QAM PRN Administration Constipation Prochlorperazine Edisylate 10 mg 04/24/24 00:48 Prochlorperazine Edisylate 10 Mg/2 Ml Vial IV PUSH Q6H PRN Nausea And Vomiting Ropinirole HCl 0.5 mg 04/24/24 21:00 04/24/24 20:59 Ropinirole Hcl 0.5 Mg Tablet PO 0.5 mg HS DOMONIQUE Administration Saccharomyces Boulardii 250 mg 04/24/24 09:40 04/25/24 09:12 Saccharomyces Boulardii 250 Mg Capsule PO 250 mg DAILY DOMONIQUE Administration Radiology Results: ITS Impressions Chest X-Ray 04/23/24 18:25 IMPRESSION: Cardiomegaly with cardiac decompensation and pulmonary edema. Superimposed pneumonitis is not excluded. Clinical correlation advised. Labs Labs: Laboratory Results - last 24 hr 04/24/24 04/24/24 04/25/24 13:57 17:59 06:42 WBC 3.4 L RBC 2.96 L Hgb 7.8 L 8.1 L Hct 25.5 L 26.6 L MCV 89.9 MCH 27.4 MCHC 30.5 L RDW 15.8 H Plt Count 253 MPV 9.2 Immature Gran % (Auto) 0.3 Neut % (Auto) 37.0 L Lymph % (Auto) 46.9 H [place] % (Auto) 12.5 H Eos % (Auto) 2.4 Baso % (Auto) 0.9 Lymph # (Auto) 1.58 [place] # (Auto) 0.4 Eos # (Auto) 0.1 Baso # (Auto) 0.0 Abs Immat Gran (auto) 0.01 Absolute Neuts (auto) 1.3 Absolute Nucleated RBC 0.000 Nucleated RBC % 0.0 Sodium 138 Potassium 3.6 Chloride 108 H Carbon Dioxide 21 L Anion Gap 9 BUN 8 L D Creatinine 0.76 Estim Creat Clear Calc 67 Estimated GFR > 60 Glucose 85 Calcium 8.7 Total Bilirubin 0.6 AST 16 L ALT 13 Alkaline Phosphatase 64 Total Protein 6.0 L Albumin 3.4 L Stl Occult Blood (IFOB) Negative
--- NOTE | 2024-04-25 10:38 | PM.IMPN ---
Progress Note: A&P Assessment and Plan (1) Anemia: Code(s): D64.9 - Anemia, unspecified Status: Acute Assessment and Plan: patient was sent in from his rehab center after follow-up labs indicated his hemoglobin had dropped to 7.1 last year 2023 his hemoglobin was 13.2 patient is on chronic anticoagulation aspirin apixaban hemodynamically stable HGb 7.1>6.9 Transfused 1 unit PRBC H&H q6HR GI consulted occult stool ordered TIBC 22/Sat 7 PPI BID Transfuse PRBC if Hgb <7.0 Holding ASA/eliquis Iron supplement added BID 04/25: HGB 8.1 Bowel prep EGD/Colonoscopy 04/26 continue to hold eliquis (2) Hypertension: Code(s): I10 - Essential (primary) hypertension Status: Acute Assessment and Plan: will resume amlodipine and metoprolol as BP tolerates reviewed BP this a.m. when 108/67 re-evaluate after unit of blood (3) BPH (benign prostatic hyperplasia): Code(s): N40.0 - Benign prostatic hyperplasia without lower urinary tract symptoms Status: Acute Assessment and Plan: resume Proscar monitor for urinary retention (4) Chronic anticoagulation: Code(s): Z79.01 - terminal manager (current) use of anticoagulants Status: Acute Assessment and Plan: patient on ASA, apixaban at home currently holding medications to possible GI bleed Plan Plan Code status: Full code per patient DVT prophylaxis: SCD's (Eliquis and ASA on hold) Stress ulcer prophylaxis: Protonix 40 BID PT/OT notes: NA Currently at a rehab (SNF ) Disposition: patient continues admission for possible GI bleed with anemia received 1 unit of blood will continue to monitor and transfuse as needed GI has been consulted for further evaluation and will continue to hold his anticoagulation therapy. EGD/colonoscopy 04/26. Patient is from a [facility] facility where he is receiving rehab will likely return when medically stable. Time Spent With Patient Time with patient: 15 - 25 minutes Subjective Date/time seen: 04/25/24 10:38 Interval history: Patient is an 83-year-old male who was admitted for further evaluation and treatment of anemia with possible GI bleed HGB as low as 6.9. patient resides at a [facility] facility and had follow-up labs which indicated a significant drop in his hemoglobin he is currently on aspirin and apixaban. 04/25/2024: Assumed Care Patient with no complaints hemoglobin 8.1 this a.m., patient agrees to have the EGD/colonoscopy now. GI to prep and plan for tomorrow 04/26. Review of Systems Review of Systems: All systems reviewed & are unremarkable except as noted in HPI and below Exam Narrative: GENERAL: Alert and oriented x 3. No acute distress. HEENT: Moist mucous membranes. LUNGS: Clear to auscultation bilaterally. No accessory muscle use. CARDIOVASCULAR: Regular rate and rhythm. No murmur. No JVD. S1-S2 ABDOMEN: Soft, non tenderness and non-distended. EXTREMITIES: No edema. Non-tender SKIN: No rashes or lesions. Skin warm, dry. NEUROLOGIC: No focal neurological deficits. Objective Data Vital Signs Vital Signs: Vital Signs - 24 hr 04/24/24 11:38 04/24/24 12:04 04/24/24 15:24 Temperature 97.8 F 98.2 F Pulse Rate 60 54 L 60 Respiratory Rate 16 16 Blood Pressure 106/66 115/69 Pulse Oximetry 99 100 Oxygen Delivery 04/24/24 16:02 04/24/24 20:00 04/24/24 20:00 Temperature 98.6 F Pulse Rate 49 L 64 Respiratory Rate 16 Blood Pressure 116/71 Pulse Oximetry 100 Oxygen Delivery CPAP 04/24/24 20:00 04/24/24 22:48 04/25/24 00:00 Temperature 98.3 F Pulse Rate 56 L 61 Respiratory Rate 20 Blood Pressure 112/79 Pulse Oximetry 95 100 Oxygen Delivery Autopap 04/25/24 00:00 04/25/24 03:50 04/25/24 04:00 Temperature Pulse Rate 58 L 61 Respiratory Rate Blood Pressure Pulse Oximetry 95 Oxygen Delivery Autopap 04/25/24 04:00 04/25/24 08:02 04/25/24 09:12 Temperature 98.3 F Pulse Rate 58 L 67 Respiratory Rate 20 Blood Pressure 148/76 H Pulse Oximetry 100 Oxygen Delivery Room Air Intake/Output Intake/Output: Intake & Output 04/22/24 04/23/24 04/24/24 04/25/24 23:59 23:59 23:59 23:59 Intake Total 4455 890 Output Total 1150 300 Balance 925 590 Meds/Results Medications: Active Medications Generic Name Dose Route Start Last Admin Trade Name Freq PRN Reason Stop Dose Admin Acetaminophen 650 mg 04/24/24 00:48 Acetaminophen 325 Mg Tablet PO Q4H PRN Mild Pain (1-3) or Fever Albuterol/Ipratropium 3 ml 04/24/24 00:48 Ipratropium 0.5 Mg/Albuterol Sulfate 2.5 Mg Ampul.Neb 3 Ml INHALATION Q4HRT PRN shortness of breath/Wheezing Amlodipine Besylate 5 mg 04/24/24 09:35 04/24/24 09:52 Amlodipine Besylate 5 Mg Tablet PO Not Given DAILY DOMONIQUE Bisacodyl 20 mg 04/25/24 17:00 Bisacodyl 5 Mg Tablet Ec PO 04/25/24 17:01 ONCE ONE Bupropion HCl 150 mg 04/24/24 09:30 04/25/24 09:12 Bupropion Hcl Sr (12 Hr) 150 Mg Tab PO 150 mg Q12HR DOMONIQUE Administration Docusate Sodium 100 mg 04/24/24 21:00 04/25/24 09:12 Docusate Sodium 100 Mg Capsule PO 100 mg Q12HR DOMONIQUE Administration Ferrous Sulfate 325 mg 04/24/24 17:00 04/25/24 09:12 Ferrous Sulfate [address] PO 325 mg BID DOMONIQUE Administration Finasteride 5 mg 04/24/24 09:35 04/25/24 09:12 Finasteride 5 Mg Tablet PO 5 mg DAILY DOMONIQUE Administration Fluoxetine HCl 20 mg 04/24/24 09:35 04/25/24 09:12 Fluoxetine Hcl 20 Mg Capsule PO 20 mg DAILY DOMONIQUE Administration Guaifenesin/Dextromethorphan 10 ml 04/24/24 00:48 Guaifenesin/Dextromethorphan 10 Ml Udc PO Q4H PRN Cough Magnesium Citrate 300 ml 04/26/24 01:00 Magnesium Citrate 300 Ml Btl PO 04/26/24 01:01 ONCE ONE Melatonin 5 mg 04/24/24 00:48 04/24/24 22:49 Melatonin 5 Mg Tablet PO 5 mg HS PRN Administration Insomnia Metoprolol Succinate 50 mg 04/24/24 09:35 04/24/24 09:52 Metoprolol Succinate Ext Rel 50 Mg Tabcr PO Not Given DAILY DOMONIQUE Miscellaneous Information 0 each 04/24/24 00:01 Miconazole Powder Is Subbed For Tolnaftate Powder - This Product Is Acquired From [facility] 05/24/24 00:00 CLARIFY DOMONIQUE Pantoprazole Sodium 40 mg 04/24/24 00:50 04/25/24 09:12 Pantoprazole Sodium Iv 40 Mg Vial IV PUSH 40 mg Q12HR DOMONIQUE Administration Polyethylene Glycol 17 gm 04/24/24 00:48 04/24/24 10:11 Polyethylene Glycol 3350 17 Gm Powd.Pack PO 17 gm QAM PRN Administration Constipation Polyethylene Glycol 238 gm 04/25/24 17:00 Polyethylene Glycol 3350 238 Gm Bottle PO 04/25/24 17:01 ONCE ONE Prochlorperazine Edisylate 10 mg 04/24/24 00:48 Prochlorperazine Edisylate 10 Mg/2 Ml Vial IV PUSH Q6H PRN Nausea And Vomiting Ropinirole HCl 0.5 mg 04/24/24 21:00 04/24/24 20:59 Ropinirole Hcl 0.5 Mg Tablet PO 0.5 mg HS DOMONIQUE Administration Saccharomyces Boulardii 250 mg 04/24/24 09:40 04/25/24 09:12 Saccharomyces Boulardii 250 Mg Capsule PO 250 mg DAILY DOMONIQUE Administration Radiology Results: ITS Impressions Chest X-Ray 04/23/24 18:25 IMPRESSION: Cardiomegaly with cardiac decompensation and pulmonary edema. Superimposed pneumonitis is not excluded. Clinical correlation advised. Labs Labs: Laboratory Results - last 24 hr 04/24/24 04/24/24 04/25/24 13:57 17:59 06:42 WBC 3.4 L RBC 2.96 L Hgb 7.8 L 8.1 L Hct 25.5 L 26.6 L MCV 89.9 MCH 27.4 MCHC 30.5 L RDW 15.8 H Plt Count 253 MPV 9.2 Immature Gran % (Auto) 0.3 Neut % (Auto) 37.0 L Lymph % (Auto) 46.9 H [place] % (Auto) 12.5 H Eos % (Auto) 2.4 Baso % (Auto) 0.9 Lymph # (Auto) 1.58 [place] # (Auto) 0.4 Eos # (Auto) 0.1 Baso # (Auto) 0.0 Abs Immat Gran (auto) 0.01 Absolute Neuts (auto) 1.3 Absolute Nucleated RBC 0.000 Nucleated RBC % 0.0 Sodium 138 Potassium 3.6 Chloride 108 H Carbon Dioxide 21 L Anion Gap 9 BUN 8 L D Creatinine 0.76 Estim Creat Clear Calc 67 Estimated GFR > 60 Glucose 85 Calcium 8.7 Total Bilirubin 0.6 AST 16 L ALT 13 Alkaline Phosphatase 64 Total Protein 6.0 L Albumin 3.4 L Stl Occult Blood (IFOB) Negative Quality VTE Prophylaxis VTE prophylaxis: mechanical ordered -Patient's previous records reviewed on admission -ER notes reviewed in detail on admission -discussed all findings and current treatment plan with patient/Family/POA -Consultations reviewed for recommendations -Patient's disposition for safe discharge discussed with dependency case manager Dictation performed by [employer] direct speech recognition software, therefore wood machinist variants and typographical errors may occur. Hospitalist MIPS Advance Care Plan I have confirmed that the patient's Advanced Care Plan is present, code status is documented, or surrogate decision maker is listed in patient medical record.: Yes Medication Reconciliation I have utilized all available resources to obtain, update and review the patients current medications (includes all prescriptions, OTC, herbals, cannabis, and nutritional supplements).: Yes The patient is not eligible for med reconciliation; the patient is in a emergent medical situation where delaying treatment would jeopardize the patients health.: No
[2024-04-25] MEDS: LACTATED RINGERS 1,000 ML 125 ML IV CONT (17:22)
[2024-04-25] MEDS: BISACODYL 5 MG TABLET EC 20 MG PO (17:22)
[2024-04-25] MEDS: polyethylene glycoL 3350 238 GM BOTTLE PO (17:23)
[2024-04-25] MEDS: rOPINIRole HCL 0.5 MG TABLET PO (20:30)
[2024-04-25] MEDS: MELATONIN 5 MG TABLET PO (20:30)
[2024-04-25] MEDS: PROCHLORPERAZINE EDISYLATE 10 MG/2 ML VIAL IV PUSH (23:20)
[2024-04-26] VITALS (11 sets, daily range): BP systolic 113–143; BP diastolic 53–77; PULSE 54–76; RESP 13–20; TEMP 36.1–37.1; O2SAT 94–100; BMI 28.8
[2024-04-26] MEDS: MAGNESIUM CITRATE 300 ML BTL PO (00:03)
[2024-04-26] MEDS: LACTATED RINGERS 1,000 ML 125 ML IV CONT ×2 (05:39→11:54)
[2024-04-26 06:39] LABS: Basophils Percent Auto 0.8 % (0.2-1.2); Eosinophils Absolute Auto 0.1 K/mm3 (0-0.3); Hematocrit 28.3 % (42.0-52.0); Hemoglobin 8.5 g/dL (14.0-18.0); Immature Granulocyte Absolute 0.01 K/mm3 (0.00-0.031); Immature Granulocyte Percent A 0.2 % (0-0.5); Lymphocytes Absolute Auto 1.76 K/mm3 (0.9-3.2); Lymphocytes Percent Auto 35.1 % (18.3-44.2); Mean Corpuscular Hemoglobin 27.2 pg (26-34); Mean Corpuscular Volume 90.4 fl (80-100); Mean Platelet Volume 9.3 fl (7.4-10.4); Monocytes Absolute Auto 0.7 K/mm3 (0.1-0.6); Monocytes Percent Auto 12.9 % (2.6-8.5); Neutrophils Absolute Auto 2.5 K/mm3 (1.3-6.7); Platelet Count Result 248 k/mm3 (150-375); Red Blood Count 3.13 M/mm3 (4.6-6.20); Red Cell Distribution Width 16.3 % (11.5-14.5)
[2024-04-26 06:58] LABS: Alanine Aminotransferase 15 U/L (6-50); Albumin Level 3.7 g/dL (3.5-5.1); Alkaline Phosphatase 58 U/L (38-126); Anion Gap 11 mmol/L (4-12); Aspartate Amino Transferase 20 U/L (17-59); Bilirubin,Total 0.5 mg/dL (0.2-1.3); Blood Urea Nitrogen 5 mg/dL (9-20); Calcium 8.8 mg/dL (8.4-10.2); Carbon Dioxide 22 mmol/L (22-30); Chloride 107 mmol/L (98-107); Estimated CRCL calculation 71 ml/min; Estimated Glomerular Filt Rate > 60; Glucose 94 mg/dL (65-110); Potassium 3.4 mmol/L (3.4-5.0); Sodium 140 mmol/L (137-145)
[2024-04-26] MEDS: PANTOPRAZOLE SODIUM IV 40 MG VIAL IV PUSH (08:36)
[2024-04-26] MEDS: LACTATED RINGERS 1,000 ML 150 ML IV CONT (14:26)
--- NOTE | 2024-04-26 14:30 | WPDANESEPPF ---
Anes - Initial Pre Proc Eval Procedure: Operation Date: 04/26/24 15:00 Proposed Procedures p Esophagogastroduodenoscopy & Colonoscopy - [place] MD Date/Time: 04/26/24 14:30 Surgeon: Fred Cates MD Pre Op Diagnosis: Anemia Patient Data Age: 84 Gender: M Height: 1.78 m Weight: 91 kg Last Vital Signs Temp 36.1 C L 04/26/24 14:24 Pulse 64 04/26/24 14:24 Resp 18 04/26/24 14:24 BP 138/72 04/26/24 14:24 Pulse Ox 100 04/26/24 14:24 O2 Del Method Room Air 04/26/24 14:24 Allergies Allergy/AdvReac Type Severity Reaction Status Date / Time No Known Allergies Allergy Mild Verified 04/26/24 14:21 Home Medications ?Medication ?Instructions ?Recorded ?Confirmed ?Type Saccharomyces boulardii 250 mg 250 mg PO DAILY 04/24/24 04/24/24 History capsule (Daily Probiotic (S. boulardii)) acetaminophen 500 mg capsule 500 mg PO Q6H PRN pain 04/24/24 04/24/24 History amlodipine 5 mg tablet 5 mg PO DAILY 04/24/24 04/24/24 History apixaban 5 mg tablet (Eliquis) 5 mg PO BID 04/24/24 04/24/24 History aspirin 81 mg tablet,delayed 81 mg PO DAILY 04/24/24 04/24/24 History release (Adult Aspirin Regimen) bupropion HCl 150 mg tablet,12 hr 150 mg PO Q12H 04/24/24 04/24/24 History sustained-release finasteride 5 mg tablet 5 mg PO DAILY 04/24/24 04/24/24 History fluoxetine 20 mg capsule 20 mg PO DAILY 04/24/24 04/24/24 History meloxicam 7.5 mg tablet 7.5 mg PO DAILY 04/24/24 04/24/24 History metoprolol succinate 50 mg 50 mg PO DAILY 04/24/24 04/24/24 History tablet,extended release 24 hr miconazole nitrate 2 % topical 1 applic topical BID 04/24/24 04/24/24 History powder (Antifungal (miconazole)) [id number] gluconate 9 15 ml PO DAILY 04/24/24 04/24/24 History mg iron/15 mL (15 mL) oral liquid (Centrum) ondansetron 4 mg disintegrating 4 mg PO Q8H PRN nausea and vomiting 04/24/24 04/24/24 History tablet polyethylene glycol 3350 17 8.5 g PO DAILY 04/24/24 04/24/24 History gram/dose oral powder (ClearLax) ropinirole 0.5 mg tablet 0.5 mg PO HS 04/24/24 04/24/24 History sulfamethoxazole 800 1 tablet PO Q12H 04/24/24 04/24/24 History mg-trimethoprim 160 mg tablet (Bactrim DS) tizanidine 4 mg tablet 4 mg PO Q8H 04/24/24 04/24/24 History vibegron 75 mg tablet (Gemtesa) 75 mg PO DAILY 04/24/24 04/24/24 History Laboratory Tests 04/26/24 06:23 WBC 5.0 K/mm3 (4.5-10.0) RBC 3.13 L M/mm3 (4.6-6.20) Hgb 8.5 L g/dL (14.0-18.0) Hct 28.3 L % (42.0-52.0) MCV 90.4 fl (80-100) MCH 27.2 pg (26-34) MCHC 30.0 L g/dl (32-36) RDW 16.3 H % (11.5-14.5) Plt Count 248 k/mm3 (150-375) MPV 9.3 fl (7.4-10.4) Immature Gran % (Auto) 0.2 % (0-0.5) Neut % (Auto) 49.0 % (45.5-73.1) Lymph % (Auto) 35.1 % (18.3-44.2) [place] % (Auto) 12.9 H % (2.6-8.5) Eos % (Auto) 2.0 % (0-4.4) Baso % (Auto) 0.8 % (0.2-1.2) Lymph # (Auto) 1.76 K/mm3 (0.9-3.2) [place] # (Auto) 0.7 H K/mm3 (0.1-0.6) Eos # (Auto) 0.1 K/mm3 (0-0.3) Baso # (Auto) 0.0 K/mm3 (0.0-0.1) Abs Immat Gran (auto) 0.01 K/mm3 (0.00-0.031) Absolute Neuts (auto) 2.5 K/mm3 (1.3-6.7) Absolute Nucleated RBC 0.000 K/mm3 (0.0-0.012) Nucleated RBC % 0.0 % (0.0-0.2) Sodium 140 mmol/L (137-145) Potassium 3.4 mmol/L (3.4-5.0) Chloride 107 mmol/L (98-107) Carbon Dioxide 22 mmol/L (22-30) Anion Gap 11 mmol/L (4-12) BUN 5 L mg/dL (9-20) Creatinine 0.70 mg/dL (0.7-1.3) Estim Creat Clear Calc 71 ml/min Estimated GFR > 60 (59 - ) Glucose 94 mg/dL (65-110) Calcium 8.8 mg/dL (8.4-10.2) Total Bilirubin 0.5 mg/dL (0.2-1.3) AST 20 U/L (17-59) ALT 15 U/L (6-50) Alkaline Phosphatase 58 U/L (38-126) Total Protein 7.0 g/dL (6.3-8.2) Albumin 3.7 g/dL (3.5-5.1) Patient hx anesthesia problems: none Family hx anesthesia problems: none Results Review: All pre-operative results and documents have been reviewed as part of the pre-operative evaluation. [facility] Past Medical History Medical History Knee pain, left Occult blood in stools Acute anemia Hypertension BPH (benign prostatic hyperplasia) RLS (restless legs syndrome) Social History Social History Smoking packs per day: 3 Smoking cigarettes per day: 60.0 Smoking status: Former smoker Tobacco type: cigarettes Smoking end date: 05/08/1959 Alcohol intake: never Substance use: never Do You Feel Safe in your Home?: Yes Lack of Transportation: No Lack of Food: Never True Current Housing: I Have Housing Concerned About Future Housing: No Difficulty Paying Gas/Electric Bills: No Difficulty Paying for Meds: No Currently Unemployed: No Education: Master's Degree or Higher Difficulty w/ Childcare or Family Care: No Spiritual care concerns: No Anes - Eval Final PreProcedure Day of Procedure 04/26/24 14:30 Patient weight: overweight Heart: irregular rhythm Lungs: clear to auscultation Airway: Mallampati scale class II Neurological: alert and oriented Last oral intake: >/= 8 hours ASA classification: III Emergent: no Anesthetic plan: proceed Anesthesia type and monitoring: general GIVS and standard monitoring Results Review: All pre-operative results and documents have been reviewed as part of the pre-operative evaluation. Informed Consent: The patient's anesthetic plan and its attendant risks and benefits were discussed with the patient/family/POA. Questions were solicited and answers provided to the satisfaction of the patient/family/POA.
--- NOTE | 2024-04-26 15:15 | SUR.OPER ---
EGD: [id number] Colon: [id number]
--- NOTE | 2024-04-26 15:52 | PM.DS ---
DS: Admitting Diagnosis Discharge Date 04/26/2024 Admitting Diagnosis Anemia DS: Discharge Diagnosis Discharge Diagnosis (1) Anemia: Code(s): D64.9 - Anemia, unspecified Status: Acute Assessment and Plan: May resume Eliquis an ASA Started on ferrous sulfate Started on pantoprazole EGD and colonoscopy showed no active bleed (2) Hypertension: Code(s): I10 - Essential (primary) hypertension Status: Acute Assessment and Plan: will resume amlodipine and metoprolol as BP tolerates reviewed BP this a.m. when 108/67 re-evaluate after unit of blood (3) BPH (benign prostatic hyperplasia): Code(s): N40.0 - Benign prostatic hyperplasia without lower urinary tract symptoms Status: Acute Assessment and Plan: resume Proscar monitor for urinary retention (4) Chronic anticoagulation: Code(s): Z79.01 - intermodal customer service (current) use of anticoagulants Status: Acute Assessment and Plan: patient on ASA, apixaban at home Plan Disposition: [facility] DS: Summary Hospital Course Reason for hospitalization: Anemia Hospital Course: Will Chung was a 83 yo M with a mhx significant for a 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 He however denies melenic stools, esha hematochezia, hematemesis or other bleeding diathesis. Work-up findings: +FOBT Hb 7.1 >> 6.9 WBC 3.9 Iron 22; TIBC 336; Ferritin 13 Retic count 0.11; INR 1.4 Influenza A/B, RSV, COVID: Negative UA: Unremarkable CXR: Cardiomegaly with cardiac decompensation and pulmonary edema. Superimposed pneumonitis is not excluded. He was admitted for evaluation of Anemia during his hospitalization his Eliquis and ASA were held however his Hgb dropped to 6.9 and he was transfused 1 unit of PRBCs. He was started on pantoprazole b.i.d. and iron supplement b.i.d. after iron panel showed low iron levels. Initially patient was refusing EGD and colonoscopy however patient was to be discharged he agreed to EGD colonoscopy. HGB remained stable at 8.1 to 8.5 with no evidence of GIB from EGD or colonoscopy. Patient's Eliquis and ASA were resumed and patient was [facility] recommended follow-up CBC in 1 week. Status at Discharge Functional status at discharge: wheelchair bound Overall status at discharge: patient is back to baseline Time Spent with Patient Time attestation: Total time spent providing and/or coordinating discharge services: Time spent: Greater than 30 minutes Exam Narrative: GENERAL: Alert and oriented x 3. No acute distress. HEENT: Moist mucous membranes. LUNGS: Clear to auscultation bilaterally. No accessory muscle use. CARDIOVASCULAR: Regular rate and rhythm. No murmur. No JVD. S1-S2 ABDOMEN: Soft, non tenderness and non-distended. EXTREMITIES: No edema. Non-tender SKIN: No rashes or lesions. Skin warm, dry. NEUROLOGIC: No focal neurological deficits. DS: Data Data Completed and Pending Labs on day of discharge: Labs from last 24 hours 04/26/24 06:23 WBC 5.0 RBC 3.13 L Hgb 8.5 L Hct 28.3 L MCV 90.4 MCH 27.2 MCHC 30.0 L RDW 16.3 H Plt Count 248 MPV 9.3 Immature Gran % (Auto) 0.2 Neut % (Auto) 49.0 Lymph % (Auto) 35.1 [place] % (Auto) 12.9 H Eos % (Auto) 2.0 Baso % (Auto) 0.8 Lymph # (Auto) 1.76 [place] # (Auto) 0.7 H Eos # (Auto) 0.1 Baso # (Auto) 0.0 Abs Immat Gran (auto) 0.01 Absolute Neuts (auto) 2.5 Absolute Nucleated RBC 0.000 Nucleated RBC % 0.0 Sodium 140 Potassium 3.4 Chloride 107 Carbon Dioxide 22 Anion Gap 11 BUN 5 L Creatinine 0.70 Estim Creat Clear Calc 71 Estimated GFR > 60 Glucose 94 Calcium 8.8 Total Bilirubin 0.5 AST 20 ALT 15 Alkaline Phosphatase 58 Total Protein 7.0 Albumin 3.7 Imaging Radiologist's impression: Radiology Results: ITS Impressions Chest X-Ray 04/23/24 18:25 IMPRESSION: Cardiomegaly with cardiac decompensation and pulmonary edema. Superimposed pneumonitis is not excluded. Clinical correlation advised. Discharge Plan Discharge Attending physician on discharge: Zaid Castrejon Consulting providers: Mary Castelan; [place] Discharging Clinician: Mary Castelan Anticipated Discharge Date/Time: 04/25/24 07:50 Patient Disposition: SNF Activity: may shower and as tolerated Diet: heart healthy Discharge Instructions: Anemia: I have prescribed Iron supplements please take as directed May resume your eliquis and ASA upon discharge please report any blood in stool and I am recommending a follow-up CBC in 1 week to monitor your H&H I have also prescribed a Protonix please take as prescribe EGD and colonoscopy showed no active bleed Follow-up CBC in 1 Week Low heart rate (bradycardia) During your admission your heart rate was low at this time I have decreased your metoprolol to 12.5mg Daily we held this medication and your HR improved. How can you care for yourself at home? ? Keep track of any new symptoms or changes in your symptoms. ? Rest until you feel better. ? Be safe with medicines. Take your medicines exactly as prescribed. Call your doctor if you think you are having a problem with your medicine. ? Do not drive after taking a prescription pain medicine. ? Ensure to follow-up with primary care physician as indicated and provide updated medication list provided to you at discharge. When should you call for help? Call 911 anytime you think you may need emergency care. For example, call if: ? You passed out (lost consciousness). Call your doctor now or seek immediate medical care if: ? You have new symptoms like fever, difficulty breathing, Chest pain, vomiting, or rash. ? You have new or different pain. ? You are confused and are having trouble thinking clearly. ? Your symptoms are getting worse. Watch closely for changes in your health, and be sure to contact your doctor if: ? You do not get better as expected. Patient Instructions: Iron Supplements (By mouth), Pantoprazole (By mouth), Anemia (DC) Patient Language: Macedonian Stand Alone Forms: General Discharge Information, Shelter Discharge Follow-up/Referrals: Helen,Will Rossi MD [Primary Care Provider] - 2 Weeks [place] MD [Physician] - Call for Appointment (To schedule outpatient EGD/colonoscopy) Discharge Medications: New metoprolol succinate 25 mg tablet extended release 24 hr 12.5 mg PO DAILY Qty: 30 0RF ferrous sulfate 325 mg (65 mg iron) Tablet,Delayed Release (Dr/Ec) 325 mg PO BID Qty: 60 0RF docusate sodium 100 mg Capsule 100 mg PO Q12HR Qty: 60 0RF pantoprazole 40 mg tablet,delayed release (DR/EC) 40 mg PO HS 42 Days Qty: 42 0RF Continued finasteride 5 mg tablet 5 mg PO DAILY Saccharomyces boulardii [Daily Probiotic (S. boulardii)] 250 mg capsule 250 mg PO DAILY fluoxetine 20 mg capsule 20 mg PO DAILY Gemtesa 75 mg tablet 75 mg PO DAILY polyethylene glycol 3350 [ClearLax] 17 gram/dose powder 8.5 g PO DAILY miconazole nitrate [Antifungal (miconazole)] 2 % powder 1 applic topical BID ropinirole 0.5 mg tablet 0.5 mg PO HS tizanidine 4 mg tablet 4 mg PO Q8H ondansetron 4 mg tablet,disintegrating 4 mg PO Q8H PRN (Reason: nausea and vomiting) Eliquis 5 mg tablet 5 mg PO BID Centrum 9 mg iron/ 15 mL (15 mL) liquid 15 ml PO DAILY bupropion HCl 150 mg tablet sustained-release 12 hr 150 mg PO Q12H aspirin [Adult Aspirin Regimen] 81 mg tablet,delayed release (DR/EC) 81 mg PO DAILY amlodipine 5 mg tablet 5 mg PO DAILY acetaminophen 500 mg capsule 500 mg PO Q6H PRN (Reason: pain) Discontinued metoprolol succinate 50 mg tablet extended release 24 hr 50 mg PO DAILY meloxicam 7.5 mg tablet 7.5 mg PO DAILY sulfamethoxazole-trimethoprim [Bactrim DS] 800-160 mg tablet 1 tablet PO Q12H Date of admission: 04/23/24 21:58 Primary Care Provider: Helen,Will Rossi Admitting Provider: Fred Cates Attending physician on admission: Fred Cates Condition: Stable Quality VTE Prophylaxis VTE prophylaxis: mechanical ordered -Patient's previous records reviewed on admission -ER notes reviewed in detail on admission -discussed all findings and current treatment plan with patient/Family/POA -Consultations reviewed for recommendations -Patient's disposition for safe discharge discussed with family service caseworker Dictation performed by [employer] direct speech recognition software, therefore real estate investment analyst variants and typographical errors may occur. Hospitalist MIPS Heart Failure (Exclusion) Patient has history of Heart Transplant or Left Ventricular Assistive Device?: No IF YES, STOP HERE Heart Failure (Qualifier) Patient has current or prior documentation of LVEF less than or equal to 40%, or mod/servere depressed LVSF?: No IF NO, STOP HERE
[2024-04-26] MEDS: FERROUS SULFATE 325 MG TABLET DR PO (16:39)
[2024-04-26 17:27] LABS: SARS-CoV-2 RNA PCR Negative (Negative)
[2024-04-27 01:44] LABS: Protein, Total 6.2 g/dL (6.1-8.1)
[2024-04-27 10:54] LABS: Haptoglobin 100 mg/dL (43-212)
[2024-04-27 19:43] LABS: Albumin 3.8 g/dL (3.8-4.8); Alpha 1 Globulin 0.3 g/dL (0.2-0.3); Alpha 2 Globulin 0.6 g/dL (0.5-0.9); Beta 1 Globulin 0.5 g/dL (0.4-0.6); Gamma Globulin 0.8 g/dL (0.8-1.7)
[2024-04-30 07:48] LABS: Soluble Transferrin Receptor 4.26 mg/L (0.76-1.76)
== END 2024-04-26 22:46 | DRG 812 ==
LOC: ANHED 21:57 → ANH3MEDSUR 04-24 05:16 → ANH2MED 04-28 15:31 → ANH3MEDSUR 04-28 15:31
PROVIDERS: Internal Medicine Gastroenterology; Admitting Provider Internal Medicine; Emergency Provider Emergency Medicine; PCP Family Medicine; Visit Provider Nurse Practitioner Family
PROC: 0DJ08ZZ Inspection of Upper Intestinal Tract, Via Natural or Artificial Opening Endoscopic (ICD-10-PCS; CPT 45378; principal; 2024-04-26 15:00)
DX: D64.9 Anemia, unspecified (principal); K92.2 Gastrointestinal hemorrhage, unspecified; K57.30 Diverticulosis of large intestine without perforation or abscess without bleeding; I48.91 Unspecified atrial fibrillation; I10 Essential (primary) hypertension; G25.81 Restless legs syndrome; N40.0 Benign prostatic hyperplasia without lower urinary tract symptoms; Z96.653 Presence of artificial knee joint, bilateral; Z79.01 Long term (current) use of anticoagulants; Z87.891 Personal history of nicotine dependence
CPT/HCPCS: 36415; 36430; 71045; 80053; 82247; 82248; 82274; 82607; 82728; 82746; 83010; 83540; 83550; 83615; 83880; 84155; 84165; 84238; 84439; 84443; 84466; 84480; 84484; 85014; 85018; 85025; 85046; 85610; 85730; 86308; 86850; 86880; 86900; 86901; 86923; 87635; 87637; 87651; 93005; 97163; 97166; 99285; A9270; J0780; J2003; J2371; J2470; J2704; J7050; J7120; P9016